=== PATIENT | female | born 1945 | race Caucasian/White ===

== ENCOUNTER → 2018-11-28 | Outpatient (CLI) | payer MEDICARE, OTHER ==
--- NOTE | 2018-11-30 10:16 | MM ---
Reason for exam: screening (asymptomatic). Last mammogram was performed 1 year and 5 months ago. History: Patient is postmenopausal. Family history of breast cancer in mother at age 85. Benign excisional biopsy of the left breast, 1989. Took estrogen for 4 years beginning at age 52. Took progesterone for 4 years beginning at age 52. Physical Findings: A clinical breast exam by your physician is recommended on an annual basis and results should be correlated with mammographic findings. MG 3D Screening Mammo W/Cad Bilateral CC and MLO view(s) were taken. Prior study comparison: June 27, 2017, bilateral MG 3d screening mammo w/cad. May 19, 2016, bilateral MG 3d screening mammo w/cad. The breast tissue is heterogeneously dense. This may lower the sensitivity of mammography. Finding: There are grouped/clustered fine calcifications in the upper outer quadrant, middle position of the left breast. New finding since May 19, 2016 and June 27, 2017. ASSESSMENT: Incomplete: need additional imaging evaluation, BI-RAD 0 RECOMMENDATION: Special view mammogram of the left breast. [facility] will attempt to contact patient to return for supplemental views.
== END | disposition home or self-care (01) ==
LOC: RADMAMWWP 14:21
PROVIDERS: ATTEND Internal Medicine
DX: Z12.31 Encounter for screening mammogram for malignant neoplasm of breast (principal)
CPT/HCPCS: 77063; 77067

== ENCOUNTER → 2018-12-06 | Outpatient (CLI) | payer MEDICARE, OTHER ==
--- NOTE | 2018-12-07 12:15 | MM ---
Reason for exam: additional evaluation requested from abnormal screening. Last mammogram was performed less than 1 month ago. History: Patient is postmenopausal. Family history of breast cancer in mother at age 85. Benign excisional biopsy of the left breast, 1989. Took estrogen for 4 years beginning at age 52. Took progesterone for 4 years beginning at age 52. Physical Findings: Nurse Summary: 0.5 x 1cm nodule in the right breast at 3 o'clock (nurse ts). MG 3D Work Up W/Cad LT CC with magnification, MLO with magnification, and LM view(s) were taken of the left breast. Prior study comparison: November 28, 2018, bilateral MG 3d screening mammo w/cad. June 27, 2017, bilateral MG 3d screening mammo w/cad. The breast tissue is heterogeneously dense. This may lower the sensitivity of mammography. There is a 3mm group of pleomorphic calcifications in the left upper outer quadrant 8.5cm from nipple, biopsy is recommended. These results were verbally communicated with the patient and result sheet given to the patient on 12/06/18. ASSESSMENT: Suspicious, BI-RAD 4 RECOMMENDATION: Stereotactic core biopsy of the left breast. Called with mammographic findings and has scheduled an appointment for the patient for 01/11/19 at 3:[address] Reeder. Biopsy scheduled for 01/15/19 at 8:00. PRELIMINARY REPORT CALLED AND FAXED TO DR. REEDER ON 12/06/18.
== END | disposition home or self-care (01) ==
LOC: RADMAMWWP 14:56
PROVIDERS: ATTEND Internal Medicine
DX: R92.8 Other abnormal and inconclusive findings on diagnostic imaging of breast (principal)
CPT/HCPCS: 77065; G0279; 77061

== ENCOUNTER → 2018-12-14 | Outpatient (CLI) | payer MEDICARE, OTHER ==
[2018-12-14 09:05] VITALS: BP 170/70; PULSE 73; RESP 16; TEMP 98.2; BMI 28.6
--- NOTE | 2018-12-14 09:37 | P.GSHP ---
History of Present Illness H&P Date: 12/14/18 Chief Complaint: abnormal mammogram The patient is a 73 year old whtie female with a complaint of an abnormal mammogram showing some microcalcifications of concern in the left breast. This was done on 11-28-18, and a diagnostic mammogram was on 12-06-18. The patient does not feel anything in her breast. No nipple discharge, or skin changes. The nipples have been inverted for many years. there is no history of any trauma or infection in the breast. Family History: 1. mother: breast at 86 2. father: lymphoma Hormonal History: menarche: 12 , breast fed: yes, first born at 18 menopause: 48 BCP: 1 year hormones: none Past Surgical History: 1. breast biopsy on the left 2. tubal 3. toe surgery Past Medical History: 1. HTN 2. high cholesterol Social History: smoke: none alcohol: twice a week drugs: none - Constitutional Constitutional: Denies chills, Denies fever - EENT Comment: sensitive to light, bilateral blephroplasty Eyes: denies blurred vision, denies pain Ears: bilateral: tinnitus - Breasts Breasts: bilateral: as per HPI - Cardiovascular Cardiovascular: Reports high blood pressure - Respiratory Respiratory: Denies cough, Denies 7 - Gastrointestinal Gastrointestinal: Denies abdominal pain, Denies diarrhea, Denies nausea, Denies vomiting - Genitourinary (Female) Genitourinary: Denies dysuria, Denies hematuria - Menstruation Menstruation: Reports postmenopausal - Musculoskeletal Comment: arthritis - Integumentary Integumentary: Denies pruritus, Denies rash - Neurological Neurological: Denies numbness, Denies weakness - Psychiatric Psychiatric: Denies anxiety, Denies depression - Endocrine Endocrine: Denies fatigue, Denies weight change - Hematologic/Lymphatic Comment: none - Allergic/Immunologic Comment: hayfever, cats, dogs Past Medical History Past Medical History: GERD/Reflux, Hyperlipidemia, Hypertension, Pneumonia Additional Past Medical History / Comment(s): loose stools, History of Any Multi-Drug Resistant Organisms: None Reported Past Surgical History: Orthopedic Surgery, Tonsillectomy, Tubal Ligation Additional Past Surgical History / Comment(s): rt foot surgery, Past Anesthesia/Blood Transfusion Reactions: Previous Problems w/ Anesthesia Additional Past Anesthesia/Blood Transfusion Reaction / Comment(s): diff waking up Past Psychological History: No Psychological Hx Reported Smoking Status: Never smoker Past Alcohol Use History: Occasional Past Drug Use History: None Reported - Past Family History Mother Family Medical History: No Reported History Medications and Allergies Home Medications Medication Instructions Recorded Confirmed Type Aspirin 81 mg PO HS 03/17/15 12/14/18 History Atorvastatin [Lipitor] 10 mg PO HS 03/17/15 12/14/18 History Calcium(Dose Unknown) 1 tab PO HS 03/17/15 12/14/18 History Metoprolol Succinate [Toprol XL] 100 mg PO DAILY 03/17/15 12/14/18 History Multivitamins, Thera [Theragran] 1 each PO DAILY 03/17/15 12/14/18 History Allergies Allergy/AdvReac Type Severity Reaction Status Date / Time codeine Allergy "groggy" Verified 03/17/15 11:51 Surgical - Exam Vital Signs Temp Pulse Resp BP Pulse Ox 98.2 F 73 16 170/70 95 12/14/18 08:52 12/14/18 08:52 12/14/18 08:52 12/14/18 08:52 12/14/18 08:52 BMI 28.7 - General well developed, well nourished, no distress - Eyes normal ocular movement - ENT no hearing loss, no congestion - Neck no masses, trachea midline, no venous distension - Respiratory normal expansion, normal respiratory effort, clear to percussion, clear to auscultation - Cardiovascular Rhythm: regular Heart Sounds: normal: S1, S2 - Abdomen Abdomen: soft, non tender, no guarding, no rigid, no rebound - Integumentary normal turgor - Neurologic no disoriented, no combative - Musculoskeletal normal gait, normal posture - Psychiatric oriented to time, oriented to person, oriented to place, speech is normal, memory intact breast exam: right breast: inverted nipple, multipositional exam no dominate leisa or nodules of concern right axilla: no adeopathy of concern left breast: inverted nipple , fibrocystic changes no dominate leisa or nodules of concern left axilla: no adenopathy of concern Results mammogram results reviewed Assessment and Plan Assessment: Impression: 1. HTN 2. high cholesterol 3. abnormal mammogram 4. fibrocystic breast disease 5. family history of cancer 6. family history of breast cancer Risk and benfits of stero biopsy discussed with the patient. The Patient understands and wishes to proceed. Plan: 1. stero biopsy of hte left breast 2. follow up after biopsy CC: Dr. Anguiano
== END | disposition home or self-care (01) ==
LOC: WWCWWP 08:49
PROVIDERS: ATTEND Surgery
DX: Z53.9 Procedure and treatment not carried out, unspecified reason (principal)

== ENCOUNTER → 2019-01-10 | Day surgery (SDC) | payer MEDICARE, OTHER ==
[2019-01-10 07:28] VITALS: RESP 16; BMI 62.1
--- NOTE | 2019-01-10 09:11 | P.OP ---
Date of Procedure: 01/10/19 Preoperative Diagnosis: Mammographic abnormality left breast Postoperative Diagnosis: same Procedure(s) Performed: Left breast stereotactic core biopsy Anesthesia: local Surgeon: Tyra Reeder Estimated Blood Loss (ml): 1 Pathology: other (Breast tissue) Condition: stable Disposition: same day Indications for Procedure: 3 mm group of pleomorphic calcifications in the left breast upper outer quadrant Operative Findings: Radiographic of specimen reveals microcalcifications of concern Description of Procedure: Munira is a 73-year-old white female who on her mammogram was noted to have an area of pleomorphic calcifications in the upper outer quadrant a 8.5 cm from the nipple, of the left breast. Biopsy was recommended. The risks and benefits of stereo biopsy were discussed with the patient and she chose to proceed. The patient was brought to the stereotactic core biopsy room. She was positioned on the prone biopsy table. A cold saw operator film was performed. The area of concern was identified. Stereo pair was obtained. The lesion of concern was identified and targeted. The breast was prepped using Betadine. 20 mL of lidocaine 1% were used to anesthetize the area of concern. The skin was anesthetized. The needle was driven to the correct coordinates. The needle was a 9-gauge vacuum-assisted rotating core biopsy needle. Prefire films were obtained. The needle appeared to be in the correct location. The needle was fired. 7 core biopsies were obtained rotating from the 3:00 to the 6 o'clock position through 12:00. The area was lavaged. Radiograph of the specimen revealed the area of concern had been sampled. A secure kathleen top-hat clip was left in place. The patient tolerated the procedure in stable condition. Specimen was sent for pathology. The patient will follow-up Dr. Dukes next week. Cc Dr. Anguiano
[2019-01-10 10:18] VITALS: BP 173/87; PULSE 67; TEMP 98
--- NOTE | 2019-01-10 13:11 | MM ---
EXAMINATION TYPE: MG stereo VAD BX LT DATE OF EXAM: 01/10/2019 COMPARISON: 12/06/2018 CLINICAL HISTORY: 3 mm indeterminate calcifications of the left breast , upper-outer quadrant, for wh ich stereotactic guided biopsy was recommended. TECHNIQUE: Stereotactic guided core biopsy of left breast. FINDINGS: The procedure of stereotactic guided core biopsy was explained to the patient. Benefits, a lternatives, and risks were discussed. An informed consent was then obtained. Preprocedural timeout was performed. The shortness pathway for biopsy was chosen. Shortness pathway was lateral to medial approach. I per formed the localization, then surgeon, Dr. Reeder performed the remainder of the procedure. A va cuum assisted biopsy gun was used to obtain multiple core samples. The patient tolerated the procedure well without any immediate complication. The patient was kept in the radiology department for short stay after the procedure and then discharged home in stable condi tion. Targeted calcifications are identified in specimen mammogram. Post biopsy mammogram shows the clip to appear in satisfactory position relative to the targeted area of concern on the preprocedure images. IMPRESSION: SUCCESSFUL, UNCOMPLICATED STEREOTACTIC GUIDED CORE BIOPSY OF AREA OF CONCERN IN THE LEFT BREAST, FULL PATHOLOGY RESULTS TO FOLLOW.
== END ==
LOC: RADMAMWWP 07:03
PROVIDERS: ATTEND Surgery
DX: D05.12 Intraductal carcinoma in situ of left breast (principal); R92.1 Mammographic calcification found on diagnostic imaging of breast; Z88.5 Allergy status to narcotic agent
CPT/HCPCS: 88305; 19081; A4648; J2001; 88341; 88342

== ENCOUNTER → 2019-01-17 | Outpatient (CLI) | payer MEDICARE, OTHER ==
[2019-01-17 13:52] VITALS: BP 183/94; PULSE 79; RESP 18; TEMP 98.2; BMI 28.6
--- NOTE | 2019-01-17 14:30 | P.PN ---
Subjective Progress Note Date: 01/17/19 A 73-year-old white female status post [place] [id number]. 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 The patient has no complaints related to the procedure. Objective - Vital Signs Vital signs: Vital Signs Temp 98.2 F 01/17/19 13:43 Pulse 79 01/17/19 13:43 Resp 18 01/17/19 13:43 BP 183/94 01/17/19 13:43 Pulse Ox 96 01/17/19 13:43 Intake & Output 01/16/19 01/17/19 01/17/19 18:59 06:59 18:59 Weight 75.75 kg - Constitutional General appearance: Present: average body habitus - EENT Eyes: Present: EOMI ENT: Present: hearing grossly normal - Neck Neck: Present: normal ROM - Respiratory Respiratory: bilateral: CTA - Cardiovascular Rhythm: regular Heart sounds: normal: S1, S2 - Gastrointestinal General gastrointestinal: Present: soft - Integumentary Integumentary: Present: normal turgor - Musculoskeletal Musculoskeletal: Present: gait normal - Psychiatric Psychiatric: Present: A&O x's 3, appropriate affect, intact judgment & insight - Additional findings Additional findings: Breast examination: Left breast: Mild ecchymosis at site of stereotactic biopsy, no evidence of any infection Assessment and Plan Assessment: Impression: 1. 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 Fibrocystic breast changes 3. Mother history of breast cancer 4. Family history of cancer 5. Hypertension 6. High cholesterol Plan: 1. Patient to meet with medical oncology 2. Lumpectomy left breast 3. Possible radiation therapy The lesion was 3 mm in size. I discussed this and benefits of surgery which would include lumpectomy plus or minus radiation therapy, possible mastectomy plus or minus reconstruction which did not think is unnecessary at this time. The patient wishes to go with lumpectomy that all possible. The patient has a very busy schedule including a trip planned to [place] in the next month and a half. She would therefore like to wait to have surgery until after she returns from this trip. In the interim I would suggest that she be seen by medical oncology and possibly start an anti-hormonal agent. She understands and Nayla nurse navigator is helping set this up. Cc: Dr. Anguiano
== END | disposition home or self-care (01) ==
LOC: WWCWWP 13:41
PROVIDERS: ATTEND Surgery
DX: Z53.9 Procedure and treatment not carried out, unspecified reason (principal)

== ENCOUNTER → 2019-03-29 | Outpatient (CLI) | payer MEDICARE, OTHER ==
[2019-03-29 14:08] VITALS: BP 178/83; PULSE 78; RESP 18; TEMP 98.3; BMI 31.2
--- NOTE | 2019-03-29 14:37 | P.PN ---
Subjective Progress Note Date: 03/29/19 Principal diagnosis: left breast DCIS Munira is a 73-year-old white female who [place] [address]. 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 The patient had a vacation planned to [place] and just got back. She wished to have the treatment after returning from her vacation. The patient has not noted any lumps masses or nodules in her breast. This was a routine mammogram done for screening patient gets mammograms every year and a noted the area of microcalcifications. The patient has had chronically inverted nipples for approximately 20 years and this has not changed. She does not report any history of trauma or infection in the breast. She is not having any pain in the breast. Family History: 1. mother: breast at 86 2. father: lymphoma Hormonal History: menarche: 12 , breast fed: yes, first born at 18 menopause: 48 BCP: 1 year hormones: none Past Surgical History: 1. breast biopsy on the left 2. tubal 3. toe surgery Past Medical History: 1. HTN 2. high cholesterol Social History: smoke: none alcohol: twice a week drugs: none - Constitutional Constitutional: Denies chills, Denies fever - EENT Comment: sensitive to light, bilateral blephroplasty Eyes: denies blurred vision, denies pain Ears: bilateral: tinnitus - Breasts Breasts: bilateral: as per HPI - Cardiovascular Cardiovascular: Reports high blood pressure - Respiratory Respiratory: Denies cough, Denies 7 - Gastrointestinal Gastrointestinal: Denies abdominal pain, Denies diarrhea, Denies nausea, Denies vomiting - Genitourinary (Female) Genitourinary: Denies dysuria, Denies hematuria - Menstruation Menstruation: Reports postmenopausal - Musculoskeletal Comment: arthritis - Integumentary Integumentary: Denies pruritus, Denies rash - Neurological Neurological: Denies numbness, Denies weakness - Psychiatric Psychiatric: Denies anxiety, Denies depression - Endocrine Endocrine: Denies fatigue, Denies weight change - Hematologic/Lymphatic Comment: none - Allergic/Immunologic Comment: hayfever, cats, dogs Past Medical History Past Medical History: GERD/Reflux, Hyperlipidemia, Hypertension, Pneumonia Additional Past Medical History / Comment(s): loose stools, History of Any Multi-Drug Resistant Organisms: None Reported Past Surgical History: Orthopedic Surgery, Tonsillectomy, Tubal Ligation Additional Past Surgical History / Comment(s): rt foot surgery, Past Anesthesia/Blood Transfusion Reactions: Previous Problems w/ Anesthesia Additional Past Anesthesia/Blood Transfusion Reaction / Comment(s): diff waking up Past Psychological History: No Psychological Hx Reported Smoking Status: Never smoker Past Alcohol Use History: Occasional Past Drug Use History: None Reported Objective - Vital Signs Vital signs: Vital Signs Temp 98.3 F 03/29/19 14:05 Pulse 78 03/29/19 14:05 Resp 18 03/29/19 14:05 BP 178/83 03/29/19 14:05 Pulse Ox 96 03/29/19 14:05 Intake & Output 03/28/19 03/29/19 03/29/19 18:59 06:59 18:59 Weight 82.554 kg - Exam BMI 31.2 - Constitutional General appearance: Present: obese - EENT Eyes: Present: EOMI ENT: Present: hearing grossly normal - Neck Neck: Present: normal ROM - Respiratory Respiratory: bilateral: CTA - Cardiovascular Rhythm: regular Heart sounds: normal: S1, S2 - Gastrointestinal General gastrointestinal: Present: soft - Integumentary Integumentary: Present: normal turgor - Musculoskeletal Musculoskeletal: Present: gait normal - Psychiatric Psychiatric: Present: A&O x's 3, appropriate affect, intact judgment & insight - Additional findings Additional findings: Breast right breast: Chronically inverted nipple, fibrocystic changes, multiple positional exam no dominant masses or nodules of concern Right axilla: No adenopathy of concern Left breast: Chronically inverted nipple, multiple positional exam fibrocystic changes no dominant masses or nodules of concern Left axilla: No adenopathy of concern Assessment and Plan Assessment: Impression: 1. right breast DCIS 2. fibrocystic breast 3. HTN 4. high cholesterol 5. family history of breast cancer 6. abnormal mammogram 7 family history of cancer Treatment options have been discussed with Gissel. These include lumpectomy with radiation therapy to the breast. Alternatively she could opt for a mastectomy plus or minus reconstruction. At this time I'm not recommending a mastectomy and the patient wishes stopped for a lumpectomy. She understands that risks include bleeding infection reaction to the anesthetic. She also understands that if the margins are positive or if she has an invasive component to the disease she may require further surgical intervention. Plan: 1. Needle localization and excisional lumpectomy right breast ductal carcinoma in situ. 2. Medical management medical conditions Cc:
== END ==
LOC: WWCWWP 13:40
PROVIDERS: ATTEND Surgery
DX: Z53.9 Procedure and treatment not carried out, unspecified reason (principal)

== ENCOUNTER 2019-04-02 08:57 | Day surgery (SDC) | payer MEDICARE, OTHER ==
[2019-03-29 10:45] VITALS: BMI 28.8
[~2019-04-02 08:57] MED LIST: DEXAMETHASONE SOD PHOSPHATE 10 MG/ML 1 ML VIAL IV ONE; HEPARIN SODIUM,PORCINE 5,000 UNIT/ML 1 ML VIAL SQ ONE; HYDROmorphone 0.5 MG/0.5 ML SYRINGE IVP PRN; LACTATED RINGERS 1,000 ML IV SCH; LIDOCAINE 1% 20 ML VIAL (10MG/ML) FOR IV START INTRADERMA PRN; MIDAZOLAM 2 MG/2 ML VIAL IV PRN; ONDANSETRON 4 MG/2 ML VIAL IVP ONE; Pre Op ABX Message 1 EACH MISC MISCELLANE ONE; SCOPOLAMINE 1.5MG/72HR PATCH TRANSDERM ONE
[2019-04-02] MEDS ORDERED: ALPRAZolam 0.25 MG TAB PO ONE (09:25)
[2019-04-02] MEDS ORDERED: LIDOCAINE 1% INJ 10MG/ML (20 ML MDV) SQ ONE ×3 (10:15→12:48)
[2019-04-02] MEDS ORDERED: PROPOFOL 10 MG/ML 20 ML VIAL IV ONE (12:12)
[2019-04-02] MEDS ORDERED: LIDOCAINE 1% INJ 10MG/ML (20 ML MDV) ONE (12:12)
[2019-04-02] MEDS ORDERED: MIDAZOLAM 2 MG/2 ML VIAL ONE (12:12)
[2019-04-02] MEDS ORDERED: ROCURONIUM BROMIDE 10 MG/ML 10 ML VIAL IV ONE (12:12)
[2019-04-02] MEDS ORDERED: NEOSTIGMINE 1 MG/ML 10 ML VIAL ONE (12:12)
[2019-04-02] MEDS ORDERED: GLYCOPYRROLATE 0.2 MG/ML 2 ML VIAL ONE (12:12)
[2019-04-02] MEDS ORDERED: KETOROLAC 30 MG/ML 1 ML VIAL ONE (12:12)
[2019-04-02] MEDS ORDERED: PHENYLEPHRINE-0.9% NACL SYG 1 MG/10 ML SYRINGE ONE (12:12)
[2019-04-02] MEDS ORDERED: fentaNYL (PF) 50 MCG/ML 2 ML AMP ONE (12:12)
[2019-04-02] MEDS ORDERED: LACTATED RINGERS 1,000 ML IV ONE (13:27)
--- NOTE | 2019-04-02 13:29 | P.NAPBC ---
NAPBC Queries - NAPBC Queries Was patient's case review presented at [facility] tumor board? If no, comment.: Yes Was patient's pathology reviewed at [facility]? If no, comment.: Yes Was breast conservation surgery offered? If no, comment.: Yes Was sentinel node biopsy offered? If no, comment.: Yes (opted not to do this after discussed with patient) Was diagnosis confirmed by percutaneous core biopsy? If no, comment.: Yes Is patient mastectomy patient?: No Clinical Stage: Stage 0
--- NOTE | 2019-04-02 13:34 | P.OP ---
Date of Procedure: 04/02/19 Preoperative Diagnosis: Ductal carcinoma in situ left breast Postoperative Diagnosis: Same Procedure(s) Performed: needle Localization and lumpectomy left breast Anesthesia: MAURIA Surgeon: Tyra Reeder Estimated Blood Loss (ml): 5 IV fluids (ml): 600 Pathology: other (bresat tissue) Condition: stable Disposition: same day Indications for Procedure: biopsy proven left breast ductal carcinoma in situ. Operative Findings: Dense breast tissue Description of Procedure: The patient is a 73-year-old white female who underwent a core biopsy of the radiographic abnormality in the left breast. Pathology revealed ductal carcinoma in situ. Options were discussed with the patient initially chose to have a lumpectomy. The area of concern in the left breast was localized. The patient was brought to the operating room and following induction of anesthesia the left breast was prepped and draped in a sterile fashion. An inferior breast incision was made and carried down to the shaft of the ne edle. Surrounding tissue was excised. The patient had several vessels feeding into the area of resection which were clamped and suture ligated. After the specimen was removed the lumpectomy tissue was painted for orientation. Radiograph of the specimen revealed the area of concern had been removed. Titanium clips were placed in the lumpectomy cavity. Patient was examined for hemostasis. After we were assured that hemostasis was attained the deep tissues were closed using 3-0 Vicryl suture. The superficial tissues closed with 4-0 Vicryl suture. This was followed by skin closure with 4-0 Monocryl. 10 mL of 1% lidocaine were used to anesthetize the area of the skin. Glue was placed. The patient tolerated the procedure in stable condition.
--- NOTE | 2019-04-02 13:36 | P.DS ---
Providers Attending physician: Tyra Reeder Primary care physician: Gregory Anguiano Plan - Discharge Summary Discharge Rx Participant: Yes New Discharge Prescriptions: No Action Metoprolol Succinate [Toprol XL] 100 mg PO DAILY Atorvastatin [Lipitor] 10 mg PO HS Calcium Carbonate/Vitamin D3 [Caltrate 600 Plus D3 Tablet] 1 each PO DAILY Multivit-Min/FA/Lycopen/Lutein [Centrum Silver Tablet] 1 each PO DAILY Ibuprofen [Advil] 400 mg PO DIRECTED PRN PRN Reason: Headache Discharge Medication List Atorvastatin [Lipitor] 10 mg PO HS 03/17/15 [History] Metoprolol Succinate [Toprol XL] 100 mg PO DAILY 03/17/15 [History] Calcium Carbonate/Vitamin D3 [Caltrate 600 Plus D3 Tablet] 1 each PO DAILY 12/25/18 [History] Multivit-Min/FA/Lycopen/Lutein [Centrum Silver Tablet] 1 each PO DAILY 12/25/18 [History] Ibuprofen [Advil] 400 mg PO DIRECTED PRN 03/29/19 [History] Follow up Appointment(s)/Referral(s): Tyra Reeder MD [STAFF PHYSICIAN] - 1 Week Activity/Diet/Wound Care/Special Instructions: Drive for 24 hours after the breast from hospital May shower after 48 hours Wear bra at all times Discharge Disposition: HOME SELF-CARE
[2019-04-02 13:59] VITALS: TEMP 97.2
[2019-04-02 14:47] VITALS: RESP 16
[2019-04-02 14:57] VITALS: BP 161/79; PULSE 65
--- NOTE | 2019-04-02 18:14 | MM ---
EXAMINATION TYPE: MG pre op needle loc LT DATE OF EXAM: 04/02/2019 COMPARISON: 01/10/2019 CLINICAL HISTORY: Abnormal mammogram TECHNIQUE: Needle localization with wire placement and surgical excision of area of concern in the left breast. FINDINGS: The procedure of needle localization with wire placement and than surgical excision was explained to the patient. Benefits, alternatives, and risks were discussed. An informed consent was then obtained. The shortest pathway for procedure was chosen. Shortest pathway was medial to lateral approach. The overlying skin was prepped and draped in usual sterile fashion. Lidocaine buffered with bicarbonate was used as anesthetic into the skin and subcutaneous tissue up to the level of area of concern. A 7 cm needle was used. It was placed via a medial to lateral approach under mammographic guidance. Subsequent 90 degrees mammogram show the needle to be in satisfactory position relative to the targeted area. At this point, wire was placed and the needle was withdrawn. The wire was fixed to patient's skin. Images were marked for surgeon. Mammographic images were reviewed and case discussed in person. The patient tolerated the procedure well without any immediate complication. The patient was kept in the radiology department for short stay after the procedure and then taken to surgery for surgical excision. Specimen: Surgical clip and previous biopsy position and wire are identified in specimen mammogram. Wire may have fractured, this was discussed with the surgeon who reported additional wire fragments were removed during surgery. IMPRESSION: 1. Successful wire localization and excision. Recommendations: 1. Recommendations are pending pathology. Pathology Results: Malignant LEFT BREAST LESION, LUMPECTOMY: Focal lobular carcinoma in situ (blocks A4 and A9) in a background of radial scar, sclerosisng adenosis, fibrocystic changes and microcalcifications. Recommendation Follow up mammogram of the left breast in 6 months. CHENG
== END 2019-04-02 15:22 | disposition home or self-care (01) ==
LOC: OR 08:57
PROVIDERS: ATTEND Surgery
DX: D05.02 Lobular carcinoma in situ of left breast (principal); N60.12 Diffuse cystic mastopathy of left breast; N60.22 Fibroadenosis of left breast; N64.59 Other signs and symptoms in breast; I10 Essential (primary) hypertension; E78.5 Hyperlipidemia, unspecified; E78.00 Pure hypercholesterolemia, unspecified; K21.9 Gastro-esophageal reflux disease without esophagitis; I83.90 Asymptomatic varicose veins of unspecified lower extremity; Z79.899 Other long term (current) drug therapy; Z88.5 Allergy status to narcotic agent; Z90.89 Acquired absence of other organs; Z98.51 Tubal ligation status; Z98.890 Other specified postprocedural states; Z78.0 Asymptomatic menopausal state; Z91.09 Other allergy status, other than to drugs and biological substances; Z87.01 Personal history of pneumonia (recurrent); Z80.3 Family history of malignant neoplasm of breast; Z80.7 Family history of other malignant neoplasms of lymphoid, hematopoietic and related tissues
CPT/HCPCS: 19301; 19281; 88342; 88307; 88341; 76098; J2250; J1644; J1100; J2710; J2405; J2001; J3010; J1885; J2370; J2704

== ENCOUNTER → 2019-04-11 | Outpatient (CLI) | payer MEDICARE, OTHER ==
[2019-04-11 16:08] VITALS: BP 158/84; PULSE 67; RESP 16; TEMP 98.2; BMI 29.5
--- NOTE | 2019-04-11 16:14 | P.PN ---
Progress Note - Text Progress Note Date: 04/11/19 Munira is a 73-year-old white female she is status post needle local excisional lumpectomy of the area in the left breast of DCIS. The procedure was done on . Pathology revealed focal lobular carcinoma in situ and no residual DCIS. She had some ecchymosis following the procedure but this is resolving and she has no complaints at this time. Lungs: Clear Heart: Regular rate and rhythm Incision: Clean and dry some resolving ecchymosis otherwise no evidence of infection Impression: 1. Patient status post lumpectomy area of DCIS no residual DCIS noted 2. Patient doing well at this time Plan: 1. Appointment with medical oncology 2. Pulmonary radiation oncology 3. Follow-up 4 months time CC:
== END | disposition home or self-care (01) ==
LOC: WWCWWP 15:44
PROVIDERS: ATTEND Surgery
DX: Z53.9 Procedure and treatment not carried out, unspecified reason (principal)

== ENCOUNTER → 2019-05-23 | Outpatient (CLI) | payer MEDICARE, OTHER ==
--- NOTE | 2019-05-24 07:31 | BD ---
EXAMINATION TYPE: Axial Bone Density DATE OF EXAM: 05/23/2019 COMPARISON: 12.26.2002 CLINICAL HISTORY: 73 YR OLD FEMALE....ICD-10 CODE: D05.12 CA IN SITU LT BREAST Height: 63 Weight: 183 FRAX RISK QUESTIONS: History of Fracture in Adulthood: YES RISK FACTORS HISTORY OF: HX OR RT FOOT FX, AND LT FOOT, AND 2 YRS LATER RT HAND FX, ALL OVER THE AGE OF 48 Family History of Osteoporosis: YES, HER MOTHER WITHOUT FX Active: YES Postmenopausal woman: YES, AT ABOUT 53 YRS OLD Lost more than 2 inches in height since high school: YES Hyperparathyroidism: NO Adrenal Insufficiency: NO MEDICATIONS: Osteoporosis Medications: STOPPED 5 YRS AGO, FOSAMAX Additional Medications: BP MEDS, ARIMIDEX,TUMS,STATIN FOR CHOLESTEROL, CALCIUM WITH D Additional History: HX LT BREAST CA, CHOLESTEROL, HYPERTENSION EXAM MEASUREMENTS: Bone mineral densitometry was performed using the [employer] System. Bone mineral density as measured about the Lumbar spine is: ----- L1-L4(G/cm2): 1.119 T Score Values are as follows: ----- L1: -1.6 ----- L2: -1.5 ----- L3: -0.3 ----- L4: 0.8 ----- L1-L4: -0.5 Bone mineral density has: Increased 12.6% since study of: 12.26.2002 Bone mineral density about the R hip (g/cm2): 0.996 Bone mineral density about the L hip (g/cm2): 1.011 T Score values are as follows: -----R Neck: -1.2 -----L Neck: -1.0 -----R Total: -0.1 -----L Total: 0.0 Bone mineral density has: Decreased -0.9% since study of: 12.26.2002 FRAX%s: THERE IS A 15.3% CHANCE FOR A MAJOR OSTEOPOROTIC FX AND A 2.4% FOR HIP.....PROBABILITY FOR FX IN 10 YRS TIME IMPRESSION: No evidence for osteoporosis or osteopenia. NOTE: T-SCORE=SD OF THE YOUNG ADULT MEAN.
== END | disposition home or self-care (01) ==
LOC: RADBDWWP 16:18
PROVIDERS: ATTEND Internal Medicine Hematology & Oncology
DX: D05.12 Intraductal carcinoma in situ of left breast (principal); N95.1 Menopausal and female climacteric states; Z79.890 Hormone replacement therapy
CPT/HCPCS: 77080

== ENCOUNTER → 2019-08-09 | Outpatient (CLI) | payer MEDICARE, OTHER ==
[2019-08-10 01:24] LABS: Gliadin AB IgA, Deaminated NEGATIVE (NEGATIVE); Gliadin AB IgA, Unit <0.2 U/mL
[2019-08-10 01:35] LABS: Gliadin AB IgG, Deaminated NEGATIVE (NEGATIVE)
== END | disposition home or self-care (01) ==
LOC: LABWHC1 15:07
PROVIDERS: ATTEND Internal Medicine
DX: R19.7 Diarrhea, unspecified (principal)
CPT/HCPCS: 36415; 83516; 85652; 86140; 87324

== ENCOUNTER 2019-08-15 08:26 | Day surgery (SDC) | payer MEDICARE, OTHER ==
[~2019-08-15 08:26] MED LIST changes: -DEXAMETHASONE SOD PHOSPHATE 10 MG/ML 1 ML VIAL IV ONE; -HEPARIN SODIUM,PORCINE 5,000 UNIT/ML 1 ML VIAL SQ ONE; -HYDROmorphone 0.5 MG/0.5 ML SYRINGE IVP PRN; +LIDOCAINE 1% (10MG/ML) FOR IV START INTRADERMA PRN; -LIDOCAINE 1% 20 ML VIAL (10MG/ML) FOR IV START INTRADERMA PRN; -ONDANSETRON 4 MG/2 ML VIAL IVP ONE; -Pre Op ABX Message 1 EACH MISC MISCELLANE ONE; -SCOPOLAMINE 1.5MG/72HR PATCH TRANSDERM ONE
[2019-08-15 09:12] VITALS: TEMP 98.2
[2019-08-15] MEDS ORDERED: PROPOFOL 10 MG/ML 20 ML VIAL IV ONE (09:31)
[2019-08-15 10:08] VITALS: PULSE 78; RESP 18
--- NOTE | 2019-08-15 10:09 | P.PCN ---
Date of Procedure: 08/15/19 Description of Procedure: BRIEF HISTORY: 74-year-old female presenting for outpatient colonoscopy for evaluation of diarrhea. She had been seen in the office reporting one month of loose bowel movements approximately 3-6 daily. She denied any black tarry stool or blood in the stool. She had reported prior colonoscopy in 2015 which was normal. Stool studies including lactoferrin, but she didn't see L and cultures have been negative. Patient was given a trial of dicyclomine with further stool studies ordered and will follow up in the office. PROCEDURE PERFORMED: Colonoscopy with biopsy. PREOPERATIVE DIAGNOSIS: Diarrhea, last colonoscopy 5 years ago per her recollection. ESTIMATED BLOOD LOSS: Minimal. IV sedation per Anesthesia. PROCEDURE: After informed consent was obtained, the patient, was brought into the endoscopy unit. IV sedation was administered by Anesthesia under continuous monitoring. Digital rectal examination was normal. Initially the Olympus CF-190 flexible video colonoscope was then inserted in the rectum, gradually advanced into the cecum without any difficulty. Careful examination was performed as the scope was gradually being withdrawn. Ileocecal valve and the appendiceal orifice were visualized and appeared normal. The terminal ileum was intubated and appeared normal with biopsies taken. Prep was excellent. Mucosa of the cecum, ascending colon, transverse colon, descending colon, sigmoid colon, and rectum appeared normal, with biopsies of the right left colon taken in the setting of altered bowel function. Retroflexion was performed in the rectum and no lesions were seen. The patient tolerated the procedure well. IMPRESSION: Normal-appearing colon from rectum to cecum, and normal-appearing terminal ileum with random biopsies of the right colon, left colon and terminal ileum given diarrhea. RECOMMENDATIONS: Findings of this examination were discussed with the patient and her . Okay to resume diet. Okay to resume medications. Await pathology from biopsies. Follow up in gastroenterology clinic as previously scheduled.
[2019-08-15 10:27] VITALS: BP 112/78
== END 2019-08-15 11:18 | disposition home or self-care (01) ==
LOC: ORWHC2ENDO 08:26
PROVIDERS: ATTEND Internal Medicine
DX: K52.839 Microscopic colitis, unspecified (principal); R19.7 Diarrhea, unspecified; E78.5 Hyperlipidemia, unspecified; Z85.3 Personal history of malignant neoplasm of breast; K21.9 Gastro-esophageal reflux disease without esophagitis; Z79.1 Long term (current) use of non-steroidal anti-inflammatories (NSAID); Z79.899 Other long term (current) drug therapy; Z88.5 Allergy status to narcotic agent
CPT/HCPCS: 45380; 88305; 88313

== ENCOUNTER → 2020-02-20 | Outpatient (CLI) | payer MEDICARE, OTHER ==
--- NOTE | 2020-02-20 12:58 | MM ---
Reason for exam: additional evaluation requested from prior study. Last mammogram was performed 1 year and 2 months ago. History: Patient is postmenopausal and has history of breast cancer at age 73. Family history of breast cancer in mother at age 85. Malignant MG pre op needle loc LT of the left breast, April 02, 2019. Lumpectomy of the left breast, April 02, 2019. Malignant MG stereo VAD BX LT of the left breast, January 10, 2019. Benign excisional biopsy of the left breast, 1989. Took estrogen for 4 years beginning at age 52. Took progesterone for 4 years beginning at age 52. Taking antineoplastic beginning at age 74. Physical Findings: Nurse did not find any significant physical abnormalities on exam. MG 3D Diag Mammo W/Cad JOHNATHAN Bilateral CC and MLO view(s) were taken. Prior study comparison: December 06, 2018, left breast MG 3d work up w/cad LT. November 28, 2018, bilateral MG 3d screening mammo w/cad. The breast tissue is heterogeneously dense. This may lower the sensitivity of mammography. Benign calcifications. No significant new findings when compared with previous films. These results were verbally communicated with the patient and result sheet given to the patient on 02/20/20. ASSESSMENT: Benign, BI-RAD 2 RECOMMENDATION: Follow-up diagnostic mammogram of both breasts in 1 year.
== END | disposition home or self-care (01) ==
LOC: RADMAMWWP 11:01
PROVIDERS: ATTEND Surgery
DX: Z08 Encounter for follow-up examination after completed treatment for malignant neoplasm (principal); Z85.3 Personal history of malignant neoplasm of breast
CPT/HCPCS: 77066; G0279; 77062

== ENCOUNTER → 2020-04-03 | Outpatient (CLI) | payer MEDICARE, OTHER ==
[2020-04-03 11:39] VITALS: BP 145/83; PULSE 69; RESP 16; TEMP 98.3
--- NOTE | 2020-04-03 11:52 | P.PN ---
Subjective Progress Note Date: 04/03/20 Principal diagnosis: left breast DCIS The patient is a 73 year old white female who presented on 12-14-18 with a complaint of an abnormal mammogram showing some microcalcifications of concern in the left breast. This was done on 11-28-18, and a diagnostic mammogram was on 12-06-18. The patient did not feel anything in her breast. No nipple discharge, or skin changes. The nipples had been inverted for many years. There was no history of any trauma or infection in the breast. She underwent a stero biopsy of the left breast on 01-10-19 which showed low grade DCIS. She than underwent a lumpectomy on 04-02-19 which showed focal lobular carcinoma insitu but no residual DCIS. This was ER/Pr+. She did not have radiation therapy. She is taking an estrogen blocking agent, exemestane (Aromasin) as per medical oncology. She had a bilateral mammogram and a2020 this was benign BIRADS 2. She is not complaining of any lumps masses or nodules in her breast. She has no abnormal nipple discharge or skin changes for which she is concerned. She has no complaints related to the Aromasin. Family History: 1. mother: breast at 86 2. father: lymphoma Hormonal History: menarche: 12 , breast fed: yes, first born at 18 menopause: 48 BCP: 1 year hormones: none Past Surgical History: 1. breast biopsy on the left 2. tubal 3. toe surgery Past Medical History: 1. HTN 2. high cholesterol Social History: smoke: none alcohol: twice a week drugs: none - Constitutional Constitutional: Denies chills, Denies fever - EENT Comment: sensitive to light, bilateral blephroplasty Eyes: denies blurred vision, denies pain Ears: bilateral: tinnitus - Breasts Breasts: bilateral: as per HPI - Cardiovascular Cardiovascular: Reports high blood pressure - Respiratory Respiratory: Denies cough, Denies 7 - Gastrointestinal Gastrointestinal: Denies abdominal pain, Denies diarrhea, Denies nausea, Denies vomiting - Genitourinary (Female) Genitourinary: Denies dysuria, Denies hematuria - Menstruation Menstruation: Reports postmenopausal - Musculoskeletal Comment: arthritis - Integumentary Integumentary: Denies pruritus, Denies rash - Neurological Neurological: Denies numbness, Denies weakness - Psychiatric Psychiatric: Denies anxiety, Denies depression - Endocrine Endocrine: Denies fatigue, Denies weight change - Hematologic/Lymphatic Comment: none - Allergic/Immunologic Comment: Objective - Vital Signs Vital signs: Intake & Output 04/02/20 04/03/20 04/03/20 18:59 06:59 18:59 Weight 80.286 kg - Exam BMI 30.4 - Constitutional General appearance: Present: average body habitus - EENT Eyes: Present: EOMI ENT: Present: hearing grossly normal - Neck Neck: Present: normal ROM - Respiratory Respiratory: bilateral: CTA - Cardiovascular Rhythm: regular Heart sounds: normal: S1, S2 - Integumentary Integumentary: Present: normal turgor - Musculoskeletal Musculoskeletal: Present: gait normal - Psychiatric Psychiatric: Present: A&O x's 3, appropriate affect, intact judgment & insight - Additional findings Additional findings: breast exam: 38D insepction: grade 3 ptosis bilateral palpation: Breasts: Multiple positional exam no dominant masses or nodules of concern, fibrocystic changes Right axilla: No adenopathy of concern Left breast: Multi-positional exam, no dominant masses or nodules of concern, well-healed scar from prior lumpectomy Left axilla: No adenopathy of concern Assessment and Plan Assessment: Impression: 1. HTN 2. high cholesterol 3. Patient status post left breast lumpectomy no evidence of cancer at this was done for DCIS 4. Patient on Aromasin Plan: 1. Continue close surveillance repeat examination in 6 months 2. Continue Aromasin continue follow-up with medical oncology 3. Medical management of medical conditions CC: DR. Anguiano encounter 15 minutes, > 50% of time in planning and counselling
== END | disposition home or self-care (01) ==
LOC: WWCWWP 11:15
PROVIDERS: ATTEND Surgery
DX: Z53.9 Procedure and treatment not carried out, unspecified reason (principal)

== ENCOUNTER → 2020-11-13 | Outpatient (CLI) | payer MEDICARE, OTHER ==
[2020-11-13 09:02] VITALS: BP 163/84; PULSE 83; RESP 18; TEMP 98.3
--- NOTE | 2020-11-13 09:32 | P.PN ---
Subjective Progress Note Date: 11/13/20 Principal diagnosis: left breast DCIS left breast DCIS The patient is a 73 year old white female who presented on 12-14-18 with a complaint of an abnormal mammogram showing some microcalcifications of concern in the left breast. This was done on 11-28-18, and a diagnostic mammogram was on 12-06-18. The patient did not feel anything in her breast. No nipple discharge, or skin changes. The nipples had been inverted for many years. There was no history of any trauma or infection in the breast. She underwent a stero biopsy of the left breast on 01-10-19 which showed low grade DCIS. She than underwent a lumpectomy on 04-02-19 which showed focal lobular carcinoma insitu but no residual DCIS. This was ER/Pr+. She did not have radiation therapy. She is taking an estrogen blocking agent, exemestane (Aromasin) as per medical oncology. She had a bilateral mammogram [id number] this was benign BIRADS 2. She is not complaining of any lumps masses or nodules in the past. She is not complaining of any abnormal nipple discharge or skin changes. She is continuing to take the Aromasin. External note from Dr. Chaparro 05-13-20 reviewed. Family History: 1. mother: breast at 86 2. father: lymphoma Hormonal History: menarche: 12 , breast fed: yes, first born at 18 menopause: 48 BCP: 1 year hormones: none Past Surgical History: 1. breast biopsy on the left 2. tubal 3. toe surgery Past Medical History: 1. HTN 2. high cholesterol Social History: smoke: none alcohol: twice a week drugs: none - Constitutional Constitutional: Denies chills, Denies fever - EENT Comment: sensitive to light, bilateral blephroplasty Eyes: denies blurred vision, denies pain Ears: bilateral: tinnitus - Breasts Breasts: bilateral: as per HPI - Cardiovascular Cardiovascular: Reports high blood pressure - Respiratory Respiratory: Denies cough - Gastrointestinal Gastrointestinal: Denies abdominal pain, Denies diarrhea, Denies nausea, Denies vomiting - Genitourinary (Female) Genitourinary: Denies dysuria, Denies hematuria - Menstruation Menstruation: Reports postmenopausal - Musculoskeletal Comment: arthritis - Integumentary Integumentary: Denies pruritus, Denies rash - Neurological Neurological: Denies numbness, Denies weakness - Psychiatric Psychiatric: Denies anxiety, Denies depression - Endocrine Endocrine: Denies fatigue, Denies weight change - Hematologic/Lymphatic Comment: none - Allergic/Immunologic Comment: Objective - Vital Signs Vital signs: Vital Signs Temp 98.3 F 11/13/20 08:59 Pulse 83 11/13/20 08:59 Resp 18 11/13/20 08:59 BP 163/84 11/13/20 08:59 Pulse Ox 96 11/13/20 08:59 Intake & Output 11/12/20 11/13/20 11/13/20 18:59 06:59 18:59 Weight 81.193 kg - Exam BMI 31.2 - Constitutional General appearance: Present: average body habitus - EENT Eyes: Present: EOMI ENT: Present: hearing grossly normal - Neck Neck: Present: normal ROM - Respiratory Respiratory: bilateral: CTA - Cardiovascular Rhythm: regular Heart sounds: normal: S1, S2 - Integumentary Integumentary: Present: normal turgor - Musculoskeletal Musculoskeletal: Present: gait normal - Psychiatric Psychiatric: Present: A&O x's 3, appropriate affect, intact judgment & insight - Additional findings Additional findings: Breast Exam: BRA: 38D inspection: Bilateral grade 3 ptosis Palpation: Right breast: Nipple inverted chronic, fibrocystic changes a multiple positional exam, no dominant masses or nodules of concern Axilla: No adenopathy of concern Left breast: Well-healed scars from prior surgery no dominant masses or nodules of concern, fibrocystic changes, mild nipple inversion less than on the right Left axilla: No adenopathy of concern Fungal infection under both breast Assessment and Plan Assessment: Impression: 1. No evidence of any recurrent tumor left breast, fibrocystic breast changes bilateral 2. Fungal infection of both breasts 3. Hypertension 4. High cholesterol 5. Patient continues on Aromasin Plan: 1. Continue Aromasin 2. Repeat bilateral mammogram in January 2021 with examination at that time 3. Nystatin for fungal infection CC: Dr. Anguiano
== END ==
LOC: WWCWWP 08:43
PROVIDERS: ATTEND Surgery
DX: N60.11 Diffuse cystic mastopathy of right breast (principal); N60.12 Diffuse cystic mastopathy of left breast; B36.8 Other specified superficial mycoses; I10 Essential (primary) hypertension; E78.00 Pure hypercholesterolemia, unspecified; Z79.811 Long term (current) use of aromatase inhibitors; Z88.5 Allergy status to narcotic agent

== ENCOUNTER → 2021-02-23 | Outpatient (CLI) | payer MEDICARE, OTHER ==
--- NOTE | 2021-02-23 13:42 | MM ---
Reason for exam: additional evaluation requested from prior study. Last mammogram was performed 1 year ago. History: Patient is postmenopausal and has history of breast cancer at age 73. Family history of breast cancer in mother at age 85. Malignant MG pre op needle loc LT of the left breast, April 02, 2019. Lumpectomy of the left breast, April 02, 2019. Malignant MG stereo VAD BX LT of the left breast, January 10, 2019. Benign excisional biopsy of the left breast, 1989. Took estrogen for 4 years beginning at age 52. Took progesterone for 4 years beginning at age 52. Taking antineoplastic beginning at age 74. Physical Findings: Nurse did not find any significant physical abnormalities on exam. MG 3D Diag Mammo W/Cad JOHNATHAN Bilateral CC and MLO view(s) were taken. Prior study comparison: February 20, 2020, bilateral MG 3d diag mammo w/cad JOHNATHAN. December 06, 2018, left breast MG 3d work up w/cad LT. The breast tissue is heterogeneously dense. This may lower the sensitivity of mammography. Benign appearing bilateral calcifications. Stable post operative change right breast. These results were verbally communicated with the patient and result sheet given to the patient on 02/23/21. ASSESSMENT: Benign, BI-RAD 2 RECOMMENDATION: Follow-up diagnostic mammogram of both breasts in 1 year.
== END | disposition home or self-care (01) ==
LOC: RADMAMWWP 12:56
PROVIDERS: ATTEND Surgery
DX: R92.2 Inconclusive mammogram (principal); R92.1 Mammographic calcification found on diagnostic imaging of breast; Z78.0 Asymptomatic menopausal state; Z80.3 Family history of malignant neoplasm of breast; Z85.3 Personal history of malignant neoplasm of breast
CPT/HCPCS: 77066; G0279; 77062

== ENCOUNTER → 2021-03-04 | Outpatient (CLI) | payer MEDICARE, OTHER ==
[2021-03-04 08:59] VITALS: BP 128/69; PULSE 81; RESP 16; TEMP 97.9
--- NOTE | 2021-03-04 09:09 | P.PN ---
Subjective Progress Note Date: 03/04/21 Principal diagnosis: left breast DCIS left breast DCIS The patient is a 75 year old white female who presented on 12-14-18 with a complaint of an abnormal mammogram showing some microcalcifications of concern in the left breast. This was done on 11-28-18, and a diagnostic mammogram was on 12-06-18. The patient did not feel anything in her breast. No nipple discharge, or skin changes. The nipples had been inverted for many years. There was no history of any trauma or infection in the breast. She underwent a stero biopsy of the left breast on 01-10-19 which showed low grade DCIS. She than underwent a lumpectomy on 04-02-19 which showed focal lobular carcinoma insitu but no residual DCIS. This was ER/Pr+. She did not have radiation therapy. She is taking an estrogen blocking agent, exemestane (Aromasin) as per medical oncology. She had a bilateral mammogram 02-23-21 this was benign BIRADS 2. She is not complaining of any lumps masses or nodules in the past. She is not complaining of any abnormal nipple discharge or skin changes. She is continuing to take the Aromasin. Family History: 1. mother: breast at 86 2. father: lymphoma Hormonal History: menarche: 12 , breast fed: yes, first born at 18 menopause: 48 BCP: 1 year hormones: none Past Surgical History: 1. breast biopsy on the left 2. tubal 3. toe surgery Past Medical History: 1. HTN 2. high cholesterol Social History: smoke: none alcohol: twice a week drugs: none - Constitutional Constitutional: Denies chills, Denies fever - EENT Comment: sensitive to light, bilateral blephroplasty Eyes: denies blurred vision, denies pain Ears: bilateral: tinnitus - Breasts Breasts: bilateral: as per HPI - Cardiovascular Cardiovascular: Reports high blood pressure - Respiratory Respiratory: Denies cough - Gastrointestinal Gastrointestinal: Denies abdominal pain, Denies diarrhea, Denies nausea, Denies vomiting - Genitourinary (Female) Genitourinary: Denies dysuria, Denies hematuria - Menstruation Menstruation: Reports postmenopausal - Musculoskeletal Comment: arthritis - Integumentary Integumentary: Denies pruritus, Denies rash - Neurological Neurological: Denies numbness, Denies weakness - Psychiatric Psychiatric: Denies anxiety, Denies depression - Endocrine Endocrine: Denies fatigue, Denies weight change - Hematologic/Lymphatic Comment: none - Allergic/Immunologic Comment: Objective - Vital Signs Vital signs: Vital Signs Temp 97.9 F 03/04/21 08:56 Pulse 81 03/04/21 08:56 Resp 16 03/04/21 08:56 BP 128/69 03/04/21 08:56 Pulse Ox 93 L 03/04/21 08:56 Intake & Output 03/03/21 03/04/21 03/04/21 18:59 06:59 18:59 Weight 83.007 kg - Constitutional General appearance: Present: average body habitus - EENT Eyes: Present: EOMI ENT: Present: hearing grossly normal - Neck Neck: Present: normal ROM - Respiratory Respiratory: bilateral: CTA - Cardiovascular Rhythm: regular Heart sounds: normal: S1, S2 - Integumentary Integumentary: Present: normal turgor - Musculoskeletal Musculoskeletal: Present: gait normal - Psychiatric Psychiatric: Present: A&O x's 3, appropriate affect, intact judgment & insight - Additional findings Additional findings: Breast Exam: BRA: 38 D inspection: Well-healed scar left breast from prior surgeries, bilateral nipple inversion chronic, grade 3 ptosis bilateral Palpation: Right breast: Multi-positional exam fibrocystic changes no dominant masses or nodules of concern Right axilla: No adenopathy of concern Left breast: Multiple positional exam fibrocystic changes no dominant masses or nodules of concern, well-healed scars from prior surgery Left axilla: No adenopathy of concern Assessment and Plan Assessment: Impression: 1. DCIS left breast no evidence of recurrence 2. Patient presently on Aromisin as per Dr. Chaparro Plan: 1. Repeat bilateral mammogram in 1 year 2. Continue follow-up with medical oncology/Vin[facility] 3. Follow-up here in 6 months CC: Dr. Anguiano
== END ==
LOC: WWCWWP 08:45
PROVIDERS: ATTEND Surgery
DX: Z08 Encounter for follow-up examination after completed treatment for malignant neoplasm (principal); I10 Essential (primary) hypertension; E78.00 Pure hypercholesterolemia, unspecified; Z88.5 Allergy status to narcotic agent; Z79.811 Long term (current) use of aromatase inhibitors

== ENCOUNTER → 2021-06-02 | Outpatient (CLI) | payer MEDICARE, OTHER ==
--- NOTE | 2021-06-03 10:10 | BD ---
EXAMINATION TYPE: Axial Bone Density DATE OF EXAM: 06/02/2021 COMPARISON: NONE CLINICAL HISTORY: Height: 5 FT 2 1/2 IN Weight: 183 FRAX RISK QUESTIONS: Alcohol (3 or more units per day): NO Family History (Parent hip fracture): NO Glucocorticoids (More than 3mos): NO (Ex: prednisone, prednisolone, methylprednisolone, dexamethasone, and hydrocortisone). History of Fracture in Adulthood: YES Secondary Osteoporosis: 1. Type 1 Diabetes: NO 2. Hyperthyroidism: NO 3. Menopause before 45: NO 4. Malnutrition: NO 5. Chronic liver disease: NO Rheumatoid Arthritis: NO Current Tobacco Use: NO RISK FACTORS HISTORY OF: Surgery to Spine/Hip(right/left)/Wrist (right/left): NO Family History of Osteoporosis: YES Active: YES Diet low in dairy products/other sources of calcium: NO Postmenopausal woman: YES Take estrogen and/or progesterone medications: NO Lost more than 2 inches in height since high school: YES Frequent falls: NO Poor Health: GOOD Hyperparathyroidism: NO Adrenal Insufficiency: NO MEDICATIONS: Additional Medications: ARIMADEX, TOPROL, CHOLESTEROL MEDS, Additional History: BREAST CANCER NO RADIIATION OR CHEMO EXAM MEASUREMENTS: Bone mineral densitometry was performed using the [employer] System. Bone mineral density as measured about the Lumbar spine is: ----- L1-L4(G/cm2): 1.189 T Score Values are as follows: ----- L2: -0.4 ----- L3: 0.6 ----- L4: 1.1 ----- L1-L4: 0.1 Bone mineral density has: INCREASED 7.5 % since study of: 2018 Bone mineral density about the R hip (g/cm2): 0.858 Bone mineral density about the L hip (g/cm2): 0.860 T Score values are as follows: -----R Neck: -1.3 -----L Neck: -1.3 -----R Total: -0.3 -----L Total: -0.5 Bone mineral density has: DECREASED -4.7 % since study of: 2019 IMPRESSION: No evidence for osteoporosis or osteopenia NOTE: T-SCORE=SD OF THE YOUNG ADULT MEAN.
== END | disposition home or self-care (01) ==
LOC: RADBDWWP 14:55
PROVIDERS: ATTEND Internal Medicine Hematology & Oncology
DX: M85.89 Other specified disorders of bone density and structure, multiple sites (principal); Z78.0 Asymptomatic menopausal state
CPT/HCPCS: 77080

== ENCOUNTER → 2021-10-28 | Outpatient (CLI) | payer MEDICARE, OTHER ==
[2021-10-28 13:51] VITALS: BP 155/84; PULSE 83; RESP 18; TEMP 97.6
--- NOTE | 2021-10-28 14:32 | P.PN ---
Subjective Progress Note Date: 10/28/21 Principal diagnosis: left breast DCIS left breast DCIS The patient is a 76 year old white female who presented on 12-14-18 with a complaint of an abnormal mammogram showing some microcalcifications of concern in the left breast. This was done on 11-28-18, and a diagnostic mammogram was on 12-06-18. The patient did not feel anything in her breast. No nipple discharge, or skin changes. The nipples had been inverted for many years. There was no history of any trauma or infection in the breast. She underwent a stero biopsy of the left breast on 01-10-19 which showed low grade DCIS. She than underwent a lumpectomy on 04-02-19 which showed focal lobular carcinoma insitu but no residual DCIS. This was ER/Pr+. She did not have radiation therapy. She is taking an estrogen blocking agent, exemestane (Aromasin) as per medical oncology. She had a bilateral mammogram 02-23-21 this was benign BIRADS 2. She is not complaining of any lumps masses or nodules in the past. She is not complaining of any abnormal nipple discharge or skin changes. She is continuing to take the Aromasin. Family History: 1. mother: breast at 86 2. father: lymphoma Hormonal History: menarche: 12 , breast fed: yes, first born at 18 menopause: 48 BCP: 1 year hormones: none Past Surgical History: 1. breast biopsy on the left 2. tubal 3. toe surgery Past Medical History: 1. HTN 2. high cholesterol Social History: smoke: none alcohol: twice a week drugs: none - Constitutional Constitutional: Denies chills, Denies fever - EENT Comment: sensitive to light, bilateral blephroplasty Eyes: denies blurred vision, denies pain Ears: bilateral: tinnitus - Breasts Breasts: bilateral: as per HPI - Cardiovascular Cardiovascular: Reports high blood pressure - Respiratory Respiratory: Denies cough - Gastrointestinal Gastrointestinal: Denies abdominal pain, Denies diarrhea, Denies nausea, Denies vomiting - Genitourinary (Female) Genitourinary: Denies dysuria, Denies hematuria - Menstruation Menstruation: Reports postmenopausal - Musculoskeletal Comment: arthritis - Integumentary Integumentary: Denies pruritus, Denies rash - Neurological Neurological: Denies numbness, Denies weakness - Psychiatric Psychiatric: Denies anxiety, Denies depression - Endocrine Endocrine: Denies fatigue, Denies weight change - Hematologic/Lymphatic Comment: none - Allergic/Immunologic: codiene Objective - Vital Signs Vital signs: Vital Signs Temp 97.6 F 10/28/21 13:49 Pulse 83 10/28/21 13:49 Resp 18 10/28/21 13:49 BP 155/84 10/28/21 13:49 Pulse Ox 96 10/28/21 13:49 Intake & Output 10/27/21 10/28/21 10/28/21 18:59 06:59 18:59 Weight 80.739 kg - Exam BMI 30.6 - Constitutional General appearance: Present: cooperative - EENT Eyes: Present: EOMI ENT: Present: hearing grossly normal - Neck Neck: Present: normal ROM - Respiratory Respiratory: bilateral: CTA - Cardiovascular Heart sounds: normal: S1, S2 - Integumentary Integumentary: Present: normal turgor - Musculoskeletal Musculoskeletal: Present: gait normal - Psychiatric Psychiatric: Present: A&O x's 3, appropriate affect, intact judgment & insight - Additional findings Additional findings: Breast Exam: BRA: 40D inspection: bilateral grade 3 ptosis; fungal infection under both breast palpation: right breast: Multi-positional exam fibrocystic changes no dominant masses or nodules of concern Right axilla: No adenopathy of concern Left breast: Multi-positional exam fibrocystic changes no dominant masses or nodules of concern Left axilla: No adenopathy of concern Assessment and Plan Assessment: Impression: Hypertension High cholesterol Left breast DCIS no evidence of recurrence Plan: Continue Aromisin Bilateral mammogram in March with physician exam at that time Continue to follow with medical oncology Call [place] or any questions or concerns CC: Dr. Anguiano
== END ==
LOC: WWCWWP 13:40
PROVIDERS: ATTEND Surgery
DX: Z08 Encounter for follow-up examination after completed treatment for malignant neoplasm (principal); Z85.3 Personal history of malignant neoplasm of breast; E78.00 Pure hypercholesterolemia, unspecified; I10 Essential (primary) hypertension; Z88.5 Allergy status to narcotic agent

== ENCOUNTER → 2021-11-08 | Outpatient (CLI) | payer MEDICARE, OTHER ==
--- NOTE | 2021-11-08 12:13 | CA ---
Stress Echo Report Munira Cole Age: 76 Gender: F : 1945 Exam Date: 11/08/2021 10:11 Exam Location: [facility] Ht (in): 65 Wt (lb): 178 Ordering Physician: Gregory Anguiano MD Referring Physician: Silvio PHAM Creative Art Director: Marissa Hu RDCS Technologist Procedure CPT: Indication: R06.09 DYSPNEA, EDEMA ICD-9 Codes: Rhythm: Patient History: HTN, Hyperlipidemia Cardiac Medications: Medications in past 24 hours: Contrast: Stress Results Protocol: Gallo Total dose(mL): Exercise Duration (min:sec): [address] Depression (mm): Angina Score: Pérez Score: METS: 4.6 Resting HR: 75 Resting BP: 157 / 92 Peak HR: 130 Peak BP: 235 / 90 Max Predicted HR: 142 92 % Max Predicted HR Target HR: 121 Double Product: [id number] Stress Summary: BP Response: Reason for Termination: Cardiac Symptoms: ECG Analysis Resting ECG: Normal sinus rhythm normal axis normal intervals Stress ECG: No significant ST segment depression at peak exercise Arrhythmia: Echo Analysis Resting Echo: Normal left ventricular size wall motion systolic function Peak Echo Analysis: Normal hyperdynamic response of all segments of myocardium MEASUREMENTS (Male/Female) Normal Values CONCLUSIONS Very poor exercise tolerance Negative stress test by EKG criteria Negative stress echo Consider cardiac evaluation if clinically indicated Dr. Bahman Dailey MD (Electronically Signed) Final Date: 08 Nov 2021 12:12
== END | disposition home or self-care (01) ==
LOC: RADNMMAIN 09:05
PROVIDERS: ATTEND Internal Medicine
DX: R06.09 Other forms of dyspnea (principal); R60.9 Edema, unspecified; E78.5 Hyperlipidemia, unspecified; I10 Essential (primary) hypertension
CPT/HCPCS: 93351

== ENCOUNTER → 2022-02-25 | Outpatient (CLI) | payer MEDICARE, OTHER ==
--- NOTE | 2022-02-25 11:34 | MM ---
Reason for Exam: Clinical finding. Last screening mammogram was performed 12 month(s) ago. Patient History: Menarche at age 12. First Full-Term at age 17. Postmenopausal. Breast cancer, left, age 73. Estrogen for 4 years from age 52 until age 56. Progesterone for 4 years from age 52 until age 56. 04/02/2019, Lumpectomy on the Left side. 1989, Benign Excisional Biopsy on the left side. 04/02/2019, Malignant Core Biopsy on the left side. 01/10/2019, Malignant Core Biopsy on the left side. Mother had breast cancer, age 85. Tissue Density: There are scattered fibroglandular densities. Findings: Analyzed By CAD. Postsurgical changes within the left breast. There is stable asymmetry within the right breast. Benign vascular calcifications are present bilaterally. No significant interval changes are evident. Overall Assessment: Benign, BI-RAD 2 Management: Diagnostic Mammogram of both breasts in 1 year. A clinical breast exam by your physician is recommended on an annual basis and results should be correlated with mammographic findings. This exam should not preclude additional follow-up of suspicious palpable abnormalities. Results were given to the patient verbally at the time of exam. Electronically signed and approved by: Saqib Kiser D.O. Radiologis
== END | disposition home or self-care (01) ==
LOC: RADMAMWWP 11:01
PROVIDERS: ATTEND Surgery
DX: R92.1 Mammographic calcification found on diagnostic imaging of breast (principal); Z78.0 Asymptomatic menopausal state; Z85.3 Personal history of malignant neoplasm of breast; Z80.3 Family history of malignant neoplasm of breast
CPT/HCPCS: 77066; G0279; 77062

== ENCOUNTER → 2022-03-04 | Outpatient (CLI) | payer MEDICARE, OTHER ==
[2022-03-04 10:14] VITALS: BP 134/84; PULSE 73; RESP 16; TEMP 98.3
--- NOTE | 2022-03-04 10:19 | P.PN ---
Subjective Progress Note Date: 03/04/22 Principal diagnosis: left breast DCIS left breast DCIS The patient is a 76 year old white female who presented on 12-14-18 with a complaint of an abnormal mammogram showing some microcalcifications of concern in the left breast. This was done on 11-28-18, and a diagnostic mammogram was on 12-06-18. The patient did not feel anything in her breast. No nipple discharge, or skin changes. The nipples had been inverted for many years. There was no history of any trauma or infection in the breast. She underwent a stero biopsy of the left breast on 01-10-19 which showed low grade DCIS. She than underwent a lumpectomy on 04-02-19 which showed focal lobular carcinoma insitu but no residual DCIS. This was ER/Pr+. She did not have radiation therapy. She is taking an estrogen blocking agent, exemestane (Aromasin) as per medical oncology. She had a bilateral mammogram 02-25-22 this was benign BIRADS 2. She is personally reviewed. She is not complaining of any lumps masses or nodules in the past. She is not complaining of any abnormal nipple discharge or skin changes. She is continuing to take the Aromasin. Family History: 1. mother: breast at 86 2. father: lymphoma Hormonal History: menarche: 12 , breast fed: yes, first born at 18 menopause: 48 BCP: 1 year hormones: none Past Surgical History: 1. breast biopsy on the left 2. tubal 3. toe surgery Past Medical History: 1. HTN 2. high cholesterol Social History: smoke: none alcohol: twice a week drugs: none - Constitutional Constitutional: Denies chills, Denies fever - EENT Comment: sensitive to light, bilateral blephroplasty Eyes: denies blurred vision, denies pain Ears: bilateral: tinnitus - Breasts Breasts: bilateral: as per HPI - Cardiovascular Cardiovascular: Reports high blood pressure - Respiratory Respiratory: Denies cough - Gastrointestinal Gastrointestinal: Denies abdominal pain, Denies diarrhea, Denies nausea, Denies vomiting - Genitourinary (Female) Genitourinary: Denies dysuria, Denies hematuria - Menstruation Menstruation: Reports postmenopausal - Musculoskeletal Comment: arthritis - Integumentary Integumentary: Denies pruritus, Denies rash - Neurological Neurological: Denies numbness, Denies weakness - Psychiatric Psychiatric: Denies anxiety, Denies depression - Endocrine Endocrine: Denies fatigue, Denies weight change - Hematologic/Lymphatic Comment: none - Allergic/Immunologic: codiene Objective - Exam BMI: 30.6 - Constitutional General appearance: Present: cooperative - EENT Eyes: Present: EOMI ENT: Present: hearing grossly normal - Neck Neck: Present: normal ROM - Respiratory Respiratory: bilateral: CTA - Cardiovascular Heart sounds: normal: S1, S2 - Integumentary Integumentary: Present: normal turgor - Musculoskeletal Musculoskeletal: Present: gait normal - Psychiatric Psychiatric: Present: A&O x's 3, appropriate affect, intact judgment & insight - Additional findings Additional findings: Breast Exam: BRA: 40D inspection: bilateral grade 3 ptosis; fungal infection under both breast palpation: right breast: Multi-positional exam fibrocystic changes no dominant masses or nodules of concern Right axilla: No adenopathy of concern Left breast: Multi-positional exam fibrocystic changes no dominant masses or nodules of concern Left axilla: No adenopathy of concern Assessment and Plan Assessment: Present: Left breast DCIS no evidence of recurrence disgnosed in 2019 Plan: Continue Aromasin Bilateral mammogram in 1 year Follow-up In 6 months CC: Dr. Anguiano
== END ==
LOC: WWCWWP 09:43
PROVIDERS: ATTEND Surgery
DX: Z08 Encounter for follow-up examination after completed treatment for malignant neoplasm (principal); Z85.3 Personal history of malignant neoplasm of breast; I10 Essential (primary) hypertension; E78.00 Pure hypercholesterolemia, unspecified; Z88.5 Allergy status to narcotic agent

== ENCOUNTER → 2022-11-03 | Outpatient (CLI) | payer MEDICARE, OTHER ==
--- NOTE | 2022-11-03 10:13 | P.PN ---
Subjective Progress Note Date: 11/03/22 Principal diagnosis: left breast DCIS 2021 left breast DCIS DX. 2019 The patient is a 77 year old white female who presented on 12-14-18 with a complaint of an abnormal mammogram showing some microcalcifications of concern in the left breast. This was done on 11-28-18, and a diagnostic mammogram was on 12-06-18. The patient did not feel anything in her breast. No nipple discharge, or skin changes. The nipples had been inverted for many years. There was no history of any trauma or infection in the breast. She underwent a stero biopsy of the left breast on 01-10-19 which showed low grade DCIS. She than underwent a lumpectomy on 04-02-19 which showed focal lobular carcinoma insitu but no residual DCIS. This was ER/Pr+. She did not have radiation therapy. She is taking an estrogen blocking agent, exemestane (Aromasin) as per medical oncology. She had a bilateral mammogram 02-25-22 this was benign BIRADS 2. She is not complaining of any lumps masses or nodules in the past. She is not complaining of any abnormal nipple discharge or skin changes. She is continuing to take the Aromasin. Dr. Reyes Chaparro [id number] reviewed; continue Aromasin 25 mg by mouth daily for 5 years Family History: 1. mother: breast at 86 2. father: lymphoma Hormonal History: menarche: 12 , breast fed: yes, first born at 18 menopause: 48 BCP: 1 year hormones: none Past Surgical History: 1. breast biopsy on the left 2. tubal 3. toe surgery Past Medical History: 1. HTN 2. high cholesterol Social History: smoke: none alcohol: twice a week drugs: none - Constitutional Constitutional: Denies chills, Denies fever - EENT Comment: sensitive to light, bilateral blephroplasty Eyes: denies blurred vision, denies pain Ears: bilateral: tinnitus - Breasts Breasts: bilateral: as per HPI - Cardiovascular Cardiovascular: Reports high blood pressure - Respiratory Respiratory: Denies cough - Gastrointestinal Gastrointestinal: Denies abdominal pain, Denies diarrhea, Denies nausea, Denies vomiting - Genitourinary (Female) Genitourinary: Denies dysuria, Denies hematuria - Menstruation Menstruation: Reports postmenopausal - Musculoskeletal Comment: arthritis - Integumentary Integumentary: Denies pruritus, Denies rash - Neurological Neurological: Denies numbness, Denies weakness - Psychiatric Psychiatric: Denies anxiety, Denies depression - Endocrine Endocrine: Denies fatigue, Denies weight change - Hematologic/Lymphatic Comment: none - Allergic/Immunologic: codiene Objective - Constitutional General appearance: Present: cooperative - EENT Eyes: Present: EOMI ENT: Present: hearing grossly normal - Neck Neck: Present: normal ROM - Respiratory Respiratory: bilateral: CTA - Cardiovascular Rhythm: regular Heart sounds: normal: S1, S2 - Gastrointestinal General gastrointestinal: Present: soft - Integumentary Integumentary: Present: normal turgor - Musculoskeletal Musculoskeletal: Present: gait normal - Psychiatric Psychiatric: Present: A&O x's 3, appropriate affect, intact judgment & insight - Additional findings Additional findings: Breast Exam: BRA: 40D inspection: bilateral grade 3 ptosis; fungal infection under right breast palpation: right breast: Multi-positional exam fibrocystic changes no dominant masses or nodules of concern Right axilla: No adenopathy of concern Left breast: Multi-positional exam fibrocystic changes no dominant masses or nodules of concern Left axilla: No adenopathy of concern Assessment and Plan Assessment: Impression: Left breast DCIS status post resection 2019 no radiation therapy the patient is on Aromasin Fungal infection under right breast Plan: Nystatin Repeat bilateral mammogram January 2023, follow-up after this Continue to follow with medical oncology Continue Aromasin CC: Dr. Anguiano
[2022-11-03 10:17] VITALS: BP 162/89; PULSE 82; RESP 17; TEMP 97.9
== END ==
LOC: WWCWWP 09:56
PROVIDERS: ATTEND Surgery
DX: D05.12 Intraductal carcinoma in situ of left breast (principal); E78.00 Pure hypercholesterolemia, unspecified; I10 Essential (primary) hypertension; Z79.811 Long term (current) use of aromatase inhibitors; Z80.3 Family history of malignant neoplasm of breast; Z88.5 Allergy status to narcotic agent; Z79.899 Other long term (current) drug therapy

== ENCOUNTER 2023-02-28 09:56 | Inpatient (IN) | payer MEDICARE, OTHER ==
[2023-02-28] MEDS ORDERED: ASPIRIN 81 MG PO STA (10:17)
[2023-02-28] MEDS ORDERED: DILTIAZEM DRIP BOLUS FROM BAG 1 MG SOLN IV ONE ×2 (10:18→11:40)
--- NOTE | 2023-02-28 10:20 | ED ---
Arrhythmia/Palpitations HPI - General Chief Complaint: Arrhythmia/Palpitations Stated Complaint: HIGH BP CHEST PAIN Time Seen by Provider: 02/28/23 10:14 Source: patient, RN notes reviewed Mode of arrival: ambulatory Limitations: no limitations - History of Present Illness Initial Comments: 77-year-old female presents emergency Department with chief complaint of palpitations. Patient's felt like her heart was racing last night just slept well MORNING heart rate was still up along with her blood pressure. Patient does have a history of hypertension no history of HIV fibrillation. Patient denies any significant chest pain that she says slight pressure. Denies any nausea vomiting diarrhea constipation. Patient denies being on any anticoagulation. She does admit to occasional dizziness. - Related Data Home Medications Medication Instructions Recorded Confirmed Atorvastatin [Lipitor] 10 mg PO HS 03/17/15 11/03/22 Metoprolol Succinate [Toprol XL] 100 mg PO QAM 03/17/15 11/03/22 Calcium Carbonate/Vitamin D3 1 each PO DAILY 12/25/18 11/03/22 [Caltrate 600 Plus D3 Tablet] Multivit-Min/FA/Lycopen/Lutein 1 each PO QAM 12/25/18 11/03/22 [Centrum Silver Tablet] Ibuprofen [Advil] 400 mg PO QAM 03/29/19 11/03/22 Exemestane [Aromasin] 25 mg PO QAM 08/14/19 11/03/22 amLODIPine BES/OLMESARTAN MED 1 tab PO QAM 08/14/19 11/03/22 [Allison 5-20 mg Tablet] Previous Rx's Medication Instructions Recorded Nystatin/Triamcin 1 applic TOPICAL BID #30 gram 11/03/22 [Nystatin-Triamcinolone Cream] Allergies Allergy/AdvReac Type Severity Reaction Status Date / Time codeine AdvReac "groggy" Verified 03/04/22 10:11 Review of Systems ROS Statement: Those systems with pertinent positive or pertinent negative responses have been documented in the HPI. ROS Other: All systems not noted in ROS Statement are negative. Past Medical History Past Medical History: Cancer, GERD/Reflux, Hyperlipidemia, Hypertension Additional Past Medical History / Comment(s): BULDGING DISC LOWER BACK, VARICOSE VEINS, LEFT BREAST CANCER . History of Any Multi-Drug Resistant Organisms: None Reported Past Surgical History: Breast Surgery, Orthopedic Surgery, Tonsillectomy, Tubal Ligation Additional Past Surgical History / Comment(s): rt foot surgery, left breast bx. , Left Breast Lumpectomy (30 yrs ago) Past Anesthesia/Blood Transfusion Reactions: Previous Problems w/ Anesthesia Additional Past Anesthesia/Blood Transfusion Reaction / Comment(s): diff waking up Past Psychological History: No Psychological Hx Reported Smoking Status: Never smoker Past Alcohol Use History: Occasional Past Drug Use History: None Reported - Past Family History Mother Family Medical History: Cancer Additional Family Medical History / Comment(s): breast cancer General Exam Limitations: no limitations General appearance: alert, in no apparent distress Head exam: Present: atraumatic, normocephalic, normal inspection Eye exam: Present: normal appearance, PERRL, EOMI. Absent: scleral icterus, conjunctival injection, periorbital swelling ENT exam: Present: normal exam, mucous membranes moist Neck exam: Present: normal inspection. Absent: tenderness, meningismus, lymphadenopathy Respiratory exam: Present: normal lung sounds bilaterally. Absent: respiratory distress, wheezes, rales, rhonchi, stridor Cardiovascular Exam: Present: tachycardia, irregular rhythm, normal heart sounds. Absent: regular rate, normal rhythm, systolic murmur, diastolic murmur, rubs, gallop, clicks GI/Abdominal exam: Present: soft, normal bowel sounds. Absent: distended, tenderness, guarding, rebound, rigid Course Vital Signs 02/28/23 02/28/23 02/28/23 10:01 10:43 11:18 Temperature 98 F 98.7 F Pulse Rate 157 H 146 H 144 H Respiratory 18 Rate Blood Pressure 151/78 135/107 131/107 O2 Sat by Pulse 98 93 L Oximetry 02/28/23 11:42 Temperature Pulse Rate 142 H Respiratory Rate Blood Pressure 124/89 O2 Sat by Pulse Oximetry EKG Findings - EKG Comments: EKG Findings:: EKG performed at 10:12 atrial fibrillation with RVR rate of 153 QRS 87 QT/QTc 246/333 - EKG Results: EKG: interpreted by WINNIE Medical Decision Making - Medical Decision Making Was pt. sent in by a medical professional or institution (, PA, FIELD MARKETING ASSOCIATE, urgent care, hospital, or retirement...) When possible be specific @ -No Did you speak to anyone other than the patient for history (EMS, parent, family, police, friend...)? What history was obtained from this source @ -No Did you review nursing and triage notes (agree or disagree)? Why? @ -I reviewed and agree with nursing and triage notes Were old charts reviewed (outside hosp., previous admission, EMS record, old EKG, old radiological studies, urgent care reports/EKG's, retirement records)? Report findings @ -No old charts were reviewed Differential Diagnosis (chest pain, altered mental status, abdominal pain women, abdominal pain men, vaginal bleeding, weakness, fever, dyspnea, syncope, headache, dizziness, GI bleed, back pain, seizure, CVA, palpatations, mental health, musculoskeletal)? @ -Differential Palpitations Ventricular arrhythmias, atrial arrhythmias, myocardial infarction, anemia, thyrotoxicosis, electrolyte imbalance, hypokalemia, pulmonary embolism, pulmonary disease, drugs, alcohol, anxiety, stress.... This is not meant to be an all-inclusive list. EKG interpreted by me (3pts min.). @ -As above X-rays interpreted by me (1pt min.). @ -Chest x-ray shows no acute cardiopulmonary. CT interpreted by me (1pt min.). @ -None done U/S interpreted by me (1pt. min.). @ -None done What testing was considered but not performed or refused? (CT, X-rays, U/S, labs)? Why? @ -None What meds were considered but not given or refused? Why? @ -None Did you discuss the management of the patient with other professionals (professionals i.e. , PA, FIELD MARKETING ASSOCIATE, lab, RT, psych nurse, protective services social worker, outbound sales professional, teacher, court security officer, telephonic nurse case manager)? Give summary @ -No Was smoking cessation discussed for >3mins.? @ -No Was critical care preformed (if so, how long)? @ -35 minutes Were there social determinants of health that impacted care today? How? (Homelessness, low income, unemployed, alcoholism, drug addiction, transportation, low edu. Level, literacy, decrease access to med. care, assisted, rehab)? @ -No Was there de-escalation of care discussed even if they declined (Discuss DNR or withdrawal of care, Hospice)? DNR status @ -No What co-morbidities impacted this encounter? (DM, HTN, Smoking, COPD, CAD, Cancer, CVA, ARF, Chemo, Hep., AIDS, mental health diagnosis, sleep apnea, morbid obesity)? @ -None Was patient admitted / discharged? Hospital course, mention meds given and route, prescriptions, significant lab abnormalities, going to OR and other pertinent info. @ -Admitted patient's found to be in A. fib RVR patient has no history of ablation. Patient was started on Cardizem, heparin. Patient will be admitted for cardiology evaluation. Undiagnosed new problem with uncertain prognosis? @ -No Drug Therapy requiring intensive monitoring for toxicity (Heparin, Nitro, Insulin, Cardizem)? @ -Heparin, Cardizem Were any procedures done? @ -No Diagnosis/symptom? @ -A. fib RVR new-onset Acute, or Chronic, or Acute on Chronic? @ -Acute Uncomplicated (without systemic symptoms) or Complicated (systemic symptoms)? @ - complicated Side effects of treatment? @ -No Exacerbation, Progression, or Severe Exacerbation? @ -No Poses a threat to life or bodily function? How? (Chest pain, USA, MA, pneumonia, PE, COPD, DKA, ARF, appy, cholecystitis, CVA, Diverticulitis, Homicidal, Suicidal, threat to staff... and all critical care pts) @ -Yes cardiac risk - Lab Data Result diagrams: 02/28/23 10:20 02/28/23 10:20 Lab Results 02/28/23 02/28/23 02/28/23 Range/Units 10:20 10:20 10:20 WBC 8.5 (3.8-10.6) k/uL RBC 5.39 (3.80-5.40) m/uL Hgb 16.3 H (11.4-16.0) gm/dL Hct 49.1 H (34.0-46.0) % MCV 91.1 (80.0-100.0) fL MCH 30.2 (25.0-35.0) pg MCHC 33.2 (31.0-37.0) g/dL RDW 12.9 (11.5-15.5) % Plt Count 252 (150-450) k/uL MPV 8.1 Neutrophils % 73 % Lymphocytes % 19 % Monocytes % 6 % Eosinophils % 1 % Basophils % 0 % Neutrophils # 6.2 (1.3-7.7) k/uL Lymphocytes # 1.6 (1.0-4.8) k/uL Monocytes # 0.5 (0-1.0) k/uL Eosinophils # 0.1 (0-0.7) k/uL Basophils # 0.0 (0-0.2) k/uL PT 10.7 (9.0-12.0) sec INR 1.0 (<1.2) APTT 21.8 L (22.0-30.0) sec Sodium 139 (137-145) mmol/L Potassium 4.4 (3.5-5.1) mmol/L Chloride 106 (98-107) mmol/L Carbon Dioxide 24 (22-30) mmol/L Anion Gap 9 mmol/L BUN 24 H (7-17) mg/dL Creatinine 0.70 (0.52-1.04) mg/dL Est GFR (CKD-EPI)AfAm >90 (>60 ml/min/1.73 sqM) Est GFR (CKD-EPI)NonAf 83 (>60 ml/min/1.73 sqM) Glucose 116 H (74-99) mg/dL Calcium 9.7 (8.4-10.2) mg/dL Magnesium 2.0 (1.6-2.3) mg/dL Total Bilirubin 0.7 (0.2-1.3) mg/dL AST 29 (14-36) U/L ALT 32 (4-34) U/L Alkaline Phosphatase 79 (38-126) U/L Troponin I (0.000-0.034) ng/mL Total Protein 7.0 (6.3-8.2) g/dL Albumin 3.9 (3.5-5.0) g/dL TSH 1.480 (0.465-4.680) mIU/L 02/28/23 Range/Units 10:20 WBC (3.8-10.6) k/uL RBC (3.80-5.40) m/uL Hgb (11.4-16.0) gm/dL Hct (34.0-46.0) % MCV (80.0-100.0) fL MCH (25.0-35.0) pg MCHC (31.0-37.0) g/dL RDW (11.5-15.5) % Plt Count (150-450) k/uL MPV Neutrophils % % Lymphocytes % % Monocytes % % Eosinophils % % Basophils % % Neutrophils # (1.3-7.7) k/uL Lymphocytes # (1.0-4.8) k/uL Monocytes # (0-1.0) k/uL Eosinophils # (0-0.7) k/uL Basophils # (0-0.2) k/uL PT (9.0-12.0) sec INR (<1.2) APTT (22.0-30.0) sec Sodium (137-145) mmol/L Potassium (3.5-5.1) mmol/L Chloride (98-107) mmol/L Carbon Dioxide (22-30) mmol/L Anion Gap mmol/L BUN (7-17) mg/dL Creatinine (0.52-1.04) mg/dL Est GFR (CKD-EPI)AfAm (>60 ml/min/1.73 sqM) Est GFR (CKD-EPI)NonAf (>60 ml/min/1.73 sqM) Glucose (74-99) mg/dL Calcium (8.4-10.2) mg/dL Magnesium (1.6-2.3) mg/dL Total Bilirubin (0.2-1.3) mg/dL AST (14-36) U/L ALT (4-34) U/L Alkaline Phosphatase (38-126) U/L Troponin I 0.023 (0.000-0.034) ng/mL Total Protein (6.3-8.2) g/dL Albumin (3.5-5.0) g/dL TSH (0.465-4.680) mIU/L Critical Care Time Critical Care Time: Yes Total Critical Care Time: 35 Disposition Clinical Impression: Atrial fibrillation with RVR, New onset a-fib Disposition: ADMITTED IP TO THIS HOSP Condition: Fair Referrals: Gregory Anguiano MD [Primary Care Provider] - 1-2 days Time of Disposition: 12:08
[2023-02-28 10:33] LABS: Basophils % (A) 0 %; Eosinophils # (A) 0.1 k/uL (0-0.7); Eosinophils % (A) 1 %; HCT 49.1 % (34.0-46.0); HGB 16.3 gm/dL (11.4-16.0); Lymphocytes # (A) 1.6 k/uL (1.0-4.8); Lymphocytes % (A) 19 %; MCH 30.2 pg (25.0-35.0); MCHC 33.2 g/dL (31.0-37.0); MCV 91.1 fL (80.0-100.0); Mean Platelet Volume 8.1; Monocytes # (A) 0.5 k/uL (0-1.0); Monocytes % (A) 6 %; Neutrophils # (A) 6.2 k/uL (1.3-7.7); Neutrophils % (A) 73 %; Platelet Count 252 k/uL (150-450); RBC 5.39 m/uL (3.80-5.40); RDW 12.9 % (11.5-15.5); WBC 8.5 k/uL (3.8-10.6)
[2023-02-28] MEDS: DILTIAZEM 125 MG in SODIUM CHLORIDE 0.9% 100 ML IV SCH ×2 (10:47→19:36)
[2023-02-28 10:49] LABS: ALT 32 U/L (4-34); AST 29 U/L (14-36); African American GFR (CKD) >90 (>60 ml/min/1.73 sqM); Albumin 3.9 g/dL (3.5-5.0); Alkaline Phosphatase 79 U/L (38-126); Anion Gap 9 mmol/L; Blood Urea Nitrogen 24 mg/dL (7-17); Calcium 9.7 mg/dL (8.4-10.2); Carbon Dioxide 24 mmol/L (22-30); Chloride 106 mmol/L (98-107); Glucose 116 mg/dL (74-99); Non-African American GFR(CKD) 83 (>60 ml/min/1.73 sqM); Potassium 4.4 mmol/L (3.5-5.1); Sodium 139 mmol/L (137-145); Total Bilirubin 0.7 mg/dL (0.2-1.3)
[2023-02-28 11:14] LABS: Prothrombin Time 10.7 sec (9.0-12.0)
[2023-02-28 11:17] LABS: Partial Thromboplastin Time 21.8 sec (22.0-30.0)
--- NOTE | 2023-02-28 11:56 | XR ---
EXAMINATION TYPE: XR chest 2V DATE OF EXAM: 02/28/2023 COMPARISON: NONE TECHNIQUE: PA and lateral views submitted. HISTORY: Dysrhythmia FINDINGS: The lungs are clear and there is no pneumothorax, pleural effusion, or focal pneumonia. Heart size normal and no overt failure. Osseous structures demonstrate hypertrophic and degenerative changes of the spine. Calcified granuloma are noted in the left lung. AC joint arthropathy. Hyperinflation sugge sts COPD. IMPRESSION: 1. No acute process.
[2023-02-28] MEDS ORDERED: HEPARIN SODIUM 1,000 UN/ML (10ML VL) IV ONE (12:08)
[2023-02-28] MEDS ORDERED: HEPARIN SODIUM 1,000 UN/ML (10ML VL) IV PRN (12:08)
[2023-02-28] MEDS: HEPARIN SOD,PORK IN 0.45% NACL 25,000 UNIT in 0.45% NACL 1 250ML.BAG IV SCH (12:27)
[2023-02-28] MEDS: METOPROLOL SUCCINATE (ER) 100 MG TAB.ER.24H PO SCH (17:14)
--- NOTE | 2023-02-28 17:19 | P.HPIM ---
History of Present Illness H&P Date: 02/28/23 Munira Cole, he is a 77-year-old female patient of Dr. Anguiano who presented to [facility] emergency room with a chief complaint of palpitation and feeling her heart racing. She was evaluated in the emergency room vital examination on presentation revealed a temperature of 98 pulse 157 respiration 18 blood pressure 151/78 pulse ox 98% on room air Laboratory data revealed a white blood count of 8.5 hemoglobin 16.3 platelet count 252 BUN 24 creatinine 0.7 troponin 0.0-3 TSH 1.48 Testing in the emergency room revealed EKG done in the emergency room revealed atrial fibrillation with rapid ventricular response and nonspecific ST and T- wave abnormality, chest x-ray done in the emergency room revealed no acute process Patient was admitted to medical floor for further evaluation and treatment Past Medical History Past Medical History: Cancer, GERD/Reflux, Hyperlipidemia, Hypertension Additional Past Medical History / Comment(s): BULDGING DISC LOWER BACK, VARICOSE VEINS, LEFT BREAST CANCER. History of Any Multi-Drug Resistant Organisms: None Reported Past Surgical History: Breast Surgery, Orthopedic Surgery, Tonsillectomy, Tubal Ligation Additional Past Surgical History / Comment(s): Rt foot surgery, left breast bx., Left Breast Lumpectomy (30 yrs ago) Past Anesthesia/Blood Transfusion Reactions: Previous Problems w/ Anesthesia Additional Past Anesthesia/Blood Transfusion Reaction / Comment(s): Difficulty waking up from anesthesia Past Psychological History: No Psychological Hx Reported Smoking Status: Never smoker Past Alcohol Use History: Occasional Past Drug Use History: None Reported - Past Family History Father Additional Family Medical History / Comment(s): of lymphoma Mother Family Medical History: Cancer Additional Family Medical History / Comment(s): Breast cancer Medications and Allergies Home Medications Medication Instructions Recorded Confirmed Type Atorvastatin [Lipitor] 10 mg PO HS 03/17/15 02/28/23 History Metoprolol Succinate [Toprol XL] 100 mg PO QAM 03/17/15 02/28/23 History Calcium Carbonate/Vitamin D3 1 tab PO HS 12/25/18 02/28/23 History [Caltrate 600 Plus D3 Tablet] Multivit-Min/FA/Lycopen/Lutein 1 tab PO QAM 12/25/18 02/28/23 History [Centrum Silver Tablet] Exemestane [Aromasin] 25 mg PO QAM 08/14/19 02/28/23 History amLODIPine BES/OLMESARTAN MED 1 tab PO QAM 08/14/19 02/28/23 History [Allison 5-20 mg Tablet] Allergies Allergy/AdvReac Type Severity Reaction Status Date / Time codeine AdvReac "groggy" Verified 02/28/23 12:27 Physical Exam Vitals: Vital Signs Temp Pulse Pulse Resp BP BP Pulse Ox 02/28/23 15:21 98.1 F 96 16 112/85 95 02/28/23 14:11 141 H 02/28/23 13:47 97.9 F 141 H 18 144/85 96 02/28/23 13:31 97.4 F L 123 H 18 120/83 95 02/28/23 12:50 125/112 02/28/23 12:29 151 H 18 120/88 95 02/28/23 12:00 135 H 18 104/85 94 L 02/28/23 11:42 142 H 124/89 02/28/23 11:18 98.7 F 144 H 131/107 93 L 02/28/23 10:43 146 H 135/107 02/28/23 10:01 98 F 157 H 18 151/78 98 Intake and Output 02/28/23 02/28/23 02/28/23 06:59 14:59 22:59 Intake Total 4.333 Balance 4.333 Intake: Intake, IV Titration 4.333 Amount Diltiazem 125 mg In 4.333 Sodium Chloride 0.9% 100 ml @ 5 MG/HR 5 mls/hr IV .Q24H [facility] Rx#:[id number] Other: Voiding Method Toilet Weight 81.193 kg In general patient is alert and oriented x 3 in no distress HEENT head normocephalic and atraumatic Neck is supple no JVD no goiter no lymphadenopathy no carotid bruit Chest examination is clear to auscultation no crackles no wheezing Cardiac exam reveals irregular heart sounds S1 and S2 with tachycardia no gallops no murmurs Abdomen is soft nontender no organomegaly with normal bowel sounds Extremity exam reveals no edema no cyanosis or clubbing Neurological examination reveals no gross focal deficits Results CBC & Chem 7: 02/28/23 10:20 02/28/23 10:20 Labs: Abnormal Lab Results - Last 24 Hours (Table) 0802/28/23 02/28/23 Range/Units 10:20 10:20 10:20 Hgb 16.3 H (11.4-16.0) gm/dL Hct 49.1 H (34.0-46.0) % APTT 21.8 L (22.0-30.0) sec BUN 24 H (7-17) mg/dL Glucose 116 H (74-99) mg/dL Thrombosis Risk Factor Assmnt - Choose All That Apply Any of the Below Risk Factors Present?: Yes Each Factor Represents 1 point: Obesity (BMI >25), Varicose veins Other Risk Factors: Yes Each Risk Factor Represents 3 Points: Age 75 years or older Other congenital or acquired thrombophilia - If yes, enter type in comment: No Thrombosis Risk Factor Assessment Total Risk Factor Score: 5 Thrombosis Risk Factor Assessment Level: High Risk Assessment and Plan Plan: New-onset atrial fibrillation with rapid ventricular response Underlying history of hypertension Underlying history of hyperlipidemia Underlying history of gastroesophageal reflux disease Remote history of breast cancer with left breast lumpectomy 30 years ago At this time patient was admitted to telemetry floor She was started on IV Cardizem drip and IV heparin Home medications reviewed and reordered Cardiology consultation requested Will follow closely
[2023-02-28] MEDS: ATORVASTATIN 10 MG TAB PO SCH (20:19)
[2023-02-28] MEDS: CALCIUM CARB-VIT D 500 MG-5 MCG TAB PO SCH (20:19)
[2023-03-01 08:03] LABS: Mean Platelet Volume 8.7; Platelet Count 222 k/uL (150-450)
[2023-03-01] MEDS: LOSARTAN 50 MG TAB PO SCH (08:40)
[2023-03-01] MEDS: METOPROLOL SUCCINATE (ER) 100 MG TAB.ER.24H PO SCH (08:40)
[2023-03-01] MEDS: MULTIVITAMINS, THERA 1 EACH TAB PO SCH (08:41)
[2023-03-01] MEDS: DILTIAZEM 125 MG in SODIUM CHLORIDE 0.9% 100 ML IV SCH (08:43)
[2023-03-01] MEDS: HEPARIN SOD,PORK IN 0.45% NACL 25,000 UNIT in 0.45% NACL 1 250ML.BAG IV SCH (08:43)
[2023-03-01] MEDS ORDERED: ASPIRIN 325 MG TAB PO SCH (09:00)
[2023-03-01] MEDS ORDERED: amLODIPine 5 MG TAB PO SCH (09:00)
--- NOTE | 2023-03-01 09:10 | P.CRDCN ---
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 She has a past medical history of hypertension, hyperlipidemia, gastroesophageal reflux disease, left breast cancer. We have been asked to evaluate the patient for A. fib with RVR new onset. Patient states that on Monday she went to her water aerobics class was feeling fine all day until about 9 PM she noticed that her heart was racing. She checked her blood pressure and this was elevated but she had a lot of going to bed and then in the morning she checked her blood pressure again and it was still elevated and she continued to have palpitations. She told her that her blood pressure was elevated and she came into the hospital for further evaluation. She continues to feel some palpitations at this time. No ligh theadedness or dizziness. Patient was started on heparin drip and Cardizem drip currently at 10 mg per hour. Telemetry reveals atrial fibrillation 116 to 130. Patient denies any history of smoking. She usually drinks 2 beers per week which she did on Monday evening. Initial blood pressure 235/107 EKG #1 A. fib with ventricular rate of 153, #2 A. fib with ventricular rate of 118 Chest x-ray: No acute process WBC 8.5, hemoglobin 16.3, platelet count 252. INR 1. Electrolytes normal. BUN 24 creatinine 0.7. Glucose 116. Troponin negative 3. TSH 1.48. Liver function tests normal. Magnesium 2.0. Potassium 4.4. Home cardiac medications: Amlodipine/olmesartan 520 one daily, Lipitor 10 mg at bedtime, Toprol-XL 50 mg daily (not correct on system). Review Of Systems: At the time of my evaluation: Constitutional: No fever, no chills. No weakness, fatigue or lethargy. EENT: No headache. No dizziness. Lungs: No shortness of breath, cough, no sputum production. No wheezing. Cardiovascular: No chest pain, no lower extremity edema. Reports palpitations. No paroxysmal nocturnal dyspnea. No orthopnea. No lightheadedness or dizziness. No syncopal episodes. Abdominal: No abdominal pain. No nausea, vomiting. No diarrhea. No constipation. No bloody or tarry stools. Genitourinary: No dysuria.. No urinary retention. Musculoskeletal: No myalgias. No muscle weakness, no frequent falls. No back pain. No neck pain. Integumentary: No wounds. No rash. No unusual bruising. Neurologic: No aphasia. No facial droop. No change in mentation. No head injury. No headache. Physical examination: Gen: This is a 77-year-old female. She is sitting in recliner and appears to be comfortable and in no acute distress. VS: reviewed. Blood pressure 113/68 HEENT: Head is atraumatic, normocephalic. Pupils equal, round. Sclerae is anicteric. NECK: Supple. No JVD. . LUNGS: Clear to auscultation. No wheezes or rhonchi. No intercostal retractions. HEART: Irregular rate and rhythm. Tachycardic ABDOMEN: Soft No tenderness. EXTREMITIES: No pedal edema. No calf tenderness. NEUROLOGICAL: Patient is awake, alert and oriented x3. Assessment: Onset A. fib with RVR, paroxysmal Hypertension Hyperlipidemia Gastroesophageal reflux disease Left breast cancer Plan: Patient is currently on Cardizem drip at 10 mg per hour and heparin drip which will be discontinued Start patient on Lopressor 50 g twice daily and eliquis 5 mg twice daily Obtain 2-D echocardiogram and Doppler study to assess cardiac structure and function Further recommendations to follow based upon clinical course Thank you kindly for this consultation. Nurse practitioner note has been reviewed, I agree with documented findings and plan of care. Patient was seen and examined. Past Medical History Past Medical History: Cancer, GERD/Reflux, Hyperlipidemia, Hypertension Additional Past Medical History / Comment(s): BULDGING DISC LOWER BACK, VARICOSE VEINS, LEFT BREAST CANCER. History of Any Multi-Drug Resistant Organisms: None Reported Past Surgical History: Breast Surgery, Orthopedic Surgery, Tonsillectomy, Tubal Ligation Additional Past Surgical History / Comment(s): Rt foot surgery, left breast bx., Left Breast Lumpectomy (30 yrs ago) Past Anesthesia/Blood Transfusion Reactions: Previous Problems w/ Anesthesia Additional Past Anesthesia/Blood Transfusion Reaction / Comment(s): Difficulty waking up from anesthesia Past Psychological History: No Psychological Hx Reported Smoking Status: Never smoker Past Alcohol Use History: Occasional Past Drug Use History: None Reported - Past Family History Father Additional Family Medical History / Comment(s): of lymphoma Mother Family Medical History: Cancer Additional Family Medical History / Comment(s): Breast cancer Medications and Allergies Home Medications Medication Instructions Recorded Confirmed Type Atorvastatin [Lipitor] 10 mg PO HS 03/17/15 02/28/23 History Metoprolol Succinate [Toprol XL] 100 mg PO QAM 03/17/15 02/28/23 History Calcium Carbonate/Vitamin D3 1 tab PO HS 12/25/18 02/28/23 History [Caltrate 600 Plus D3 Tablet] Multivit-Min/FA/Lycopen/Lutein 1 tab PO QAM 12/25/18 02/28/23 History [Centrum Silver Tablet] Exemestane [Aromasin] 25 mg PO QAM 08/14/19 02/28/23 History amLODIPine BES/OLMESARTAN MED 1 tab PO QAM 08/14/19 02/28/23 History [Allison 5-20 mg Tablet] Allergies Allergy/AdvReac Type Severity Reaction Status Date / Time codeine AdvReac "groggy" Verified 02/28/23 12:27 Physical Exam Vitals: Vital Signs Temp Pulse Pulse Resp BP BP Pulse Ox 03/01/23 04:00 97.7 F 123 H 18 113/68 97 03/01/23 02:00 112 H 18 03/01/23 00:00 112 H 18 105/69 93 L 02/28/23 20:00 97.7 F 91 18 112/72 92 L 02/28/23 15:21 98.1 F 96 16 112/85 95 02/28/23 14:11 141 H 02/28/23 13:47 97.9 F 141 H 18 144/85 96 02/28/23 13:31 97.4 F L 123 H 18 120/83 95 02/28/23 12:50 125/112 02/28/23 12:29 151 H 18 120/88 95 02/28/23 12:00 135 H 18 104/85 94 L 02/28/23 11:42 142 H 124/89 02/28/23 11:18 98.7 F 144 H 131/107 93 L 02/28/23 10:43 146 H 135/107 02/28/23 10:01 98 F 157 H 18 151/78 98 Intake and Output 02/28/23 03/01/23 03/01/23 22:59 06:59 14:59 Intake Total 253.966 Balance 253.966 Intake: Intake, IV Titration 143.966 Amount Diltiazem 125 mg In 79.5 Sodium Chloride 0.9% 100 ml @ 5 MG/HR 5 mls/hr IV .Q24H [facility] Rx#:[id number] Heparin Sod,Pork in 0.45% 64.466 NaCl 25,000 unit In 0.45 % NaCl 1 250ml.bag @ 12 UNITS/KG/HR 9.743 mls/hr IV .Q24H [facility] Rx#: [id number] Oral 110 Other: Voiding Method Toilet Toilet # Voids 1 1 Results 03/01/23 07:27 02/28/23 10:20 Cardiac Enzymes 02/28/23 02/28/23 02/28/23 Range/Units 10:20 10:20 12:30 AST 29 (14-36) U/L Troponin I 0.023 0.021 (0.000-0.034) ng/mL 02/28/23 Range/Units 14:57 AST (14-36) U/L Troponin I 0.019 (0.000-0.034) ng/mL Coagulation 02/28/23 02/28/23 03/01/23 Range/Units 10:20 18:17 00:14 PT 10.7 (9.0-12.0) sec APTT 21.8 L 34.9 H 64.9 H (22.0-30.0) sec CBC 02/28/23 03/01/23 Range/Units 10:20 07:27 WBC 8.5 (3.8-10.6) k/uL RBC 5.39 (3.80-5.40) m/uL Hgb 16.3 H (11.4-16.0) gm/dL Hct 49.1 H (34.0-46.0) % Plt Count 252 222 (150-450) k/uL Comprehensive Metabolic Panel 02/28/23 Range/Units 10:20 Sodium 139 (137-145) mmol/L Potassium 4.4 (3.5-5.1) mmol/L Chloride 106 (98-107) mmol/L Carbon Dioxide 24 (22-30) mmol/L BUN 24 H (7-17) mg/dL Creatinine 0.70 (0.52-1.04) mg/dL Glucose 116 H (74-99) mg/dL Calcium 9.7 (8.4-10.2) mg/dL AST 29 (14-36) U/L ALT 32 (4-34) U/L Alkaline Phosphatase 79 (38-126) U/L Total Protein 7.0 (6.3-8.2) g/dL Albumin 3.9 (3.5-5.0) g/dL Current Medications Generic Name Dose Route Start Last Admin Trade Name Freq PRN Reason Stop Dose Admin Amlodipine Besylate 5 mg 03/01/23 09:00 Amlodipine 5 Mg Tab PO QAM [facility] Aspirin 325 mg 03/01/23 09:00 Aspirin 325 Mg Tab PO DAILY [facility] Atorvastatin Calcium 10 mg 02/28/23 21:00 02/28/23 20:19 Atorvastatin 10 Mg Tab PO 10 mg HS [facility] Administration Calcium Carbonate 1 each 02/28/23 21:00 02/28/23 20:19 Calcium Carb-Vit D 500 Mg-5 Mcg Tab PO 1 each HS [facility] Administration Heparin Sodium (Porcine) 0 unit 02/28/23 12:08 02/28/23 19:07 Heparin Sodium 1,000 Un/Ml (10ml Vl) IV 4,000 unit Q6HR PRN Administration Low PTT Protocol Diltiazem HCl 125 mg/ Sodium 125 mls @ 5 mls/hr 02/28/23 10:45 02/28/23 19:36 Chloride IV 10 mg/hr .Q24H [facility] 10 mls/hr Administration 5 MG/HR Heparin Sodium/Sodium Chloride 250 mls @ 9.743 mls/hr 02/28/23 12:15 02/28/23 19:04 25,000 unit/ Sodium Chloride IV 15 units/kg/hr .Q24H [facility] 12.179 mls/hr Titration Protocol 12 UNITS/KG/HR Losartan Potassium 100 mg 03/01/23 09:00 Losartan 50 Mg Tab PO QAM [facility] Metoprolol Succinate 100 mg 02/28/23 17:15 02/28/23 17:14 Metoprolol Succinate (Er) 100 Mg Tab.Er.24h PO [facility] [place]ivitamins 1 each 03/01/23 09:00 Multivitamins, Thera 1 Each Tab [facility] [place] Non-Formulary Medication 25 mg 03/01/23 09:00 Exemestane [Aromasin] PO QAM [facility] Intake and Output 02/28/23 03/01/23 03/01/23 22:59 06:59 14:59 Intake Total 253.966 Balance 253.966 Intake: Intake, IV Titration 143.966 Amount Diltiazem 125 mg In 79.5 Sodium Chloride 0.9% 100 ml @ 5 MG/HR 5 mls/hr IV .Q24H [facility] Rx#:[id number] Heparin Sod,Pork in 0.45% 64.466 NaCl 25,000 unit In 0.45 % NaCl 1 250ml.bag @ 12 UNITS/KG/HR 9.743 mls/hr IV .Q24H [facility] Rx#: [id number] Oral 110 Other: Voiding Method Toilet Toilet # Voids 1 1 03/01/23 07:27 02/28/23 10:20
--- NOTE | 2023-03-01 11:23 | P.PN ---
Subjective Progress Note Date: 03/01/23 Munira Cole, he is a 77-year-old female patient of Dr. Anguiano who presented to [facility] emergency room with a chief complaint of palpitation and feeling her heart racing. She was evaluated in the emergency room vital examination on presentation revealed a temperature of 98 pulse 157 respiration 18 blood pressure 151/78 pulse ox 98% on room air Laboratory data revealed a white blood count of 8.5 hemoglobin 16.3 platelet count 252 BUN 24 creatinine 0.7 troponin 0.0-3 TSH 1.48 Testing in the emergency room revealed EKG done in the emergency room revealed atrial fibrillation with rapid ventricular response and nonspecific ST and T- wave abnormality, chest x-ray done in the emergency room revealed no acute process Patient was admitted to medical floor for further evaluation and treatment on 03/01/2023 patient is alert and oriented 3. Patient remains on Cardizem and heparin drips. per cardiology plans to DC Cardizem and heparin and transitioned to oral eliquis and Lopressor. 2-D echocardiogram ordered. Patient still having elevated heart rate 120s, blood pressure 139/71. Patient denies chest pain or shortness of breath. Patient denies nausea vomiting or diarrhea. Patient denies any urinary burning or frequency Objective - Vital Signs Vital signs: Vital Signs Temp 97.6 F 03/01/23 08:00 Pulse 130 H 03/01/23 08:00 Resp 18 03/01/23 08:00 BP 139/71 03/01/23 08:00 Pulse Ox 95 03/01/23 08:00 FiO2 Intake & Output 02/28/23 03/01/23 03/01/23 18:59 06:59 18:59 Intake Total 114.333 143.966 531.243 Balance 114.333 143.966 531.243 Weight 81.193 kg Intake: Intake, IV Titration 4.333 143.966 291.243 Amount Diltiazem 125 mg In 4.333 79.5 125 Sodium Chloride 0.9% 100 ml @ 5 MG/HR 5 mls/hr IV .Q24H [facility] Rx#:[id number] Heparin Sod,Pork in 0.45% 64.466 166.243 NaCl 25,000 unit In 0.45 % NaCl 1 250ml.bag @ 12 UNITS/KG/HR 9.743 mls/hr IV .Q24H [facility] Rx#: [id number] Oral 110 240 Other: Voiding Method Toilet Toilet # Voids 1 - Exam In general patient is alert and oriented x 3 in no distress HEENT head normocephalic and atraumatic Neck is supple no JVD no goiter no lymphadenopathy no carotid bruit Chest examination is clear to auscultation no crackles no wheezing Cardiac exam reveals irregular heart sounds S1 and S2 with tachycardia no gallops no murmurs Abdomen is soft nontender no organomegaly with normal bowel sounds Extremity exam reveals no edema no cyanosis or clubbing Neurological examination reveals no gross focal deficits - Labs CBC & Chem 7: 03/01/23 07:27 02/28/23 10:20 Labs: Abnormal Lab Results - Last 24 Hours (Table) 02/28/23 03/01/23 03/01/23 Range/Units 18:17 00:14 07:27 APTT 34.9 H 64.9 H 54.6 H (22.0-30.0) sec Assessment and Plan Assessment: New-onset atrial fibrillation with rapid ventricular response Underlying history of hypertension Underlying history of hyperlipidemia Underlying history of gastroesophageal reflux disease Remote history of breast cancer with left breast lumpectomy 30 years ago At this time patient was admitted to telemetry floor She was started on IV Cardizem drip and IV heparin Home medications reviewed and reordered Cardiology consultation requested Will follow closely
[2023-03-01] MEDS: APIXABAN 5 MG TAB PO SCH ×2 (12:01→20:10)
[2023-03-01] MEDS: METOPROLOL TARTRATE 50 MG TAB PO SCH ×2 (16:33→20:10)
[2023-03-01] MEDS: CALCIUM CARB-VIT D 500 MG-5 MCG TAB PO SCH (20:10)
[2023-03-01] MEDS: ATORVASTATIN 10 MG TAB PO SCH (20:10)
[2023-03-01] MEDS ORDERED: METOPROLOL TARTRATE 50 MG TAB PO SCH (21:00)
[2023-03-02] MEDS: METOPROLOL TARTRATE 50 MG TAB PO SCH ×3 (05:19→20:08)
[2023-03-02 08:17] LABS: Basophils % (A) 0 %; Eosinophils # (A) 0.1 k/uL (0-0.7); Eosinophils % (A) 2 %; HCT 45.8 % (34.0-46.0); HGB 14.9 gm/dL (11.4-16.0); Lymphocytes # (A) 1.5 k/uL (1.0-4.8); Lymphocytes % (A) 19 %; MCHC 32.6 g/dL (31.0-37.0); MCV 92.1 fL (80.0-100.0); Mean Platelet Volume 8.6; Monocytes # (A) 0.4 k/uL (0-1.0); Monocytes % (A) 5 %; Neutrophils # (A) 5.8 k/uL (1.3-7.7); Neutrophils % (A) 72 %; Platelet Count 239 k/uL (150-450); RBC 4.98 m/uL (3.80-5.40); RDW 12.9 % (11.5-15.5)
[2023-03-02] MEDS: AMIODARONE 200 MG TAB PO SCH ×2 (09:08→20:07)
[2023-03-02] MEDS: MULTIVITAMINS, THERA 1 EACH TAB PO SCH (09:09)
[2023-03-02] MEDS: APIXABAN 5 MG TAB PO SCH ×2 (09:09→20:07)
[2023-03-02] MEDS: LOSARTAN 50 MG TAB PO SCH (09:09)
[2023-03-02 11:14] LABS: African American GFR (CKD) >90 (>60 ml/min/1.73 sqM); Anion Gap 7 mmol/L; Blood Urea Nitrogen 17 mg/dL (7-17); Calcium 9.4 mg/dL (8.4-10.2); Carbon Dioxide 25 mmol/L (22-30); Chloride 107 mmol/L (98-107); Glucose 165 mg/dL (74-99); Non-African American GFR(CKD) 84 (>60 ml/min/1.73 sqM); Potassium 4.6 mmol/L (3.5-5.1); Sodium 139 mmol/L (137-145)
--- NOTE | 2023-03-02 11:28 | P.PN ---
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 She has a past medical history of hypertension, hyperlipidemia, gastroesophageal reflux disease, left breast cancer. We have been asked to evaluate the patient for A. fib with RVR new onset. Patient states that on Monday she went to her water aerobics class was feeling fine all day until about 9 PM she noticed that her heart was racing. She checked her blood pressure and this was elevated but she had a lot of going to bed and then in the morning she checked her blood pressure again and it was still elevated and she continued to have palpitations. She told her that her blood pressure was elevated and she came into the hospital for further evaluation. She continues to feel some palpitations at this time. No lightheadedness or dizziness. Patient was started on heparin drip and Cardizem drip currently at 10 mg per hour. Telemetry reveals atrial fibrillation 116 to 130. Patient denies any history of smoking. She usually drinks 2 beers per wee k which she did on Monday evening. Initial blood pressure 235/107 EKG #1 A. fib with ventricular rate of 153, #2 A. fib with ventricular rate of 118 Chest x-ray: No acute process WBC 8.5, hemoglobin 16.3, platelet count 252. INR 1. Electrolytes normal. BUN 24 creatinine 0.7. Glucose 116. Troponin negative 3. TSH 1.48. Liver function tests normal. Magnesium 2.0. Potassium 4.4. Home cardiac medications: Amlodipine/olmesartan 520 one daily, Lipitor 10 mg at bedtime, Toprol-XL 50 mg daily (not correct on system). 03/02 The patient remains in atrial fibrillation with RVR despite current medications. She is running 140-160 and is on Lopressor 50 mg 3 times daily. Patient has some palpitations. No lightheadedness or dizziness. Blood pressure 111/66, pulse ox 90% on room air. CBC is within normal limits. Glucose is 165 otherwise electrolytes and renal function are normal. Echocardiogram is pending. Physical examination: Gen: This is a 77-year-old female. She is sitting in recliner and appears to be comfortable and in no acute distress. VS: reviewed. HEENT: Head is atraumatic, normocephalic. Pupils equal, round. Sclerae is anicteric. NECK: Supple. No JVD. . LUNGS: Clear to auscultation. No wheezes or rhonchi. No intercostal retractions. HEART: Irregular rate and rhythm. Tachycardic EXTREMITIES: No pedal edema. No calf tenderness. NEUROLOGICAL: Patient is awake, alert and oriented x3. Assessment: New onset A. fib with RVR, paroxysmal Hypertension Hyperlipidemia Gastroesophageal reflux disease Left breast cancer Plan: Continue patient on Lopressor 50 mg twice daily and eliquis 5 mg twice daily Start patient on amiodarone 400 mg twice daily Obtain 2-D echocardiogram and Doppler study to assess cardiac structure and function Patient to be nothing by mouth at midnight and if heart rate is not controlled by morning, plan for GRISELDA and cardioversion. Further recommendations to follow based upon clinical course Nurse practitioner note has been reviewed, I agree with documented findings and plan of care. Patient was seen and examined. Objective - Vital Signs Vital signs: Vital Signs Temp 97.6 F 03/02/23 07:47 Pulse 138 H 03/02/23 07:47 Resp 16 03/02/23 08:00 BP 111/66 03/02/23 07:47 Pulse Ox 98 03/02/23 07:47 FiO2 Intake & Output 03/01/23 03/02/23 03/02/23 18:59 06:59 18:59 Intake Total 881.243 368 Balance 881.243 368 Intake: IV 10 Invasive Line 2 10 Intake, IV Titration 291.243 Amount Diltiazem 125 mg In 125 Sodium Chloride 0.9% 100 ml @ 5 MG/HR 5 mls/hr IV .Q24H [facility] Rx#:[id number] Heparin Sod,Pork in 0.45% 166.243 NaCl 25,000 unit In 0.45 % NaCl 1 250ml.bag @ 12 UNITS/KG/HR 9.743 mls/hr IV .Q24H [facility] Rx#: [id number] Oral 590 358 Other: Voiding Method Toilet Toilet # Voids 1 - Labs CBC & Chem 7: 03/02/23 07:32 03/02/23 07:32 Labs: Abnormal Lab Results - Last 24 Hours (Table) 03/02/23 Range/Units 07:32 Glucose 165 H (74-99) mg/dL
--- NOTE | 2023-03-02 13:49 | P.PN ---
Subjective Progress Note Date: 03/02/23 Munira Cole, he is a 77-year-old female patient of Dr. Anguiano who presented to [facility] emergency room with a chief complaint of palpitation and feeling her heart racing. She was evaluated in the emergency room vital examination on presentation revealed a temperature of 98 pulse 157 respiration 18 blood pressure 151/78 pulse ox 98% on room air Laboratory data revealed a white blood count of 8.5 hemoglobin 16.3 platelet count 252 BUN 24 creatinine 0.7 troponin 0.0-3 TSH 1.48 Testing in the emergency room revealed EKG done in the emergency room revealed atrial fibrillation with rapid ventricular response and nonspecific ST and T- wave abnormality, chest x-ray done in the emergency room revealed no acute process Patient was admitted to medical floor for further evaluation and treatment on 03/01/2023 patient is alert and oriented 3. Patient remains on Cardizem and heparin drips. per cardiology plans to DC Cardizem and heparin and transitioned to oral eliquis and Lopressor. 2-D echocardiogram ordered. Patient still having elevated heart rate 120s, blood pressure 139/71. Patient denies chest pain or shortness of breath. Patient denies nausea vomiting or diarrhea. Patient denies any urinary burning or frequency On 03/02/2023 patient was seen and examined on the telemetry floor, she is alert and oriented 3 in no apparent distress, there is no fever or chills no headache or dizziness no chest pain no shortness of breath no cough no nausea or vomiting no abdominal pain no diarrhea and no urinary symptoms. Heart rate is still not well controlled, patient was evaluated by cardiology earlier, and amiodarone was added to her medication regimen, patient is not yet cleared for discharge. Objective - Vital Signs Vital signs: Vital Signs Temp 98.8 F 03/02/23 11:53 Pulse 143 H 03/02/23 11:53 Resp 18 03/02/23 11:53 BP 133/86 03/02/23 11:53 Pulse Ox 96 03/02/23 11:53 FiO2 Intake & Output 03/01/23 03/02/23 03/02/23 18:59 06:59 18:59 Intake Total 881.243 608 Balance 881.243 608 Intake: IV 10 Invasive Line 2 10 Intake, IV Titration 291.243 Amount Diltiazem 125 mg In 125 Sodium Chloride 0.9% 100 ml @ 5 MG/HR 5 mls/hr IV .Q24H [facility] Rx#:[id number] Heparin Sod,Pork in 0.45% 166.243 NaCl 25,000 unit In 0.45 % NaCl 1 250ml.bag @ 12 UNITS/KG/HR 9.743 mls/hr IV .Q24H [facility] Rx#: [id number] Oral 590 598 Other: Voiding Method Toilet Toilet # Voids 1 - Exam In general patient is alert and oriented x 3 in no distress HEENT head normocephalic and atraumatic Neck is supple no JVD no goiter no lymphadenopathy no carotid bruit Chest examination is clear to auscultation no crackles no wheezing Cardiac exam reveals irregular heart sounds S1 and S2 with tachycardia no gallops no murmurs Abdomen is soft nontender no organomegaly with normal bowel sounds Extremity exam reveals no edema no cyanosis or clubbing Neurological examination reveals no gross focal deficits - Labs CBC & Chem 7: 03/02/23 07:32 03/02/23 07:32 Labs: Abnormal Lab Results - Last 24 Hours (Table) 03/02/23 Range/Units 07:32 Glucose 165 H (74-99) mg/dL Assessment and Plan Plan: New-onset atrial fibrillation with rapid ventricular response Underlying history of hypertension Underlying history of hyperlipidemia Underlying history of gastroesophageal reflux disease Remote history of breast cancer with left breast lumpectomy 30 years ago At this time patient was admitted to telemetry floor She was started on IV Cardizem drip and IV heparin Home medications reviewed and reordered Cardiology consultation requested Will follow closely
[2023-03-02] MEDS: CALCIUM CARB-VIT D 500 MG-5 MCG TAB PO SCH (20:07)
[2023-03-02] MEDS: ATORVASTATIN 10 MG TAB PO SCH (20:07)
[2023-03-03 03:12] VITALS: RESP 16
[2023-03-03 08:46] VITALS: BP 122/61; PULSE 85; TEMP 98.5
[2023-03-03 08:51] LABS: Basophils % (A) 0 %; Eosinophils # (A) 0.1 k/uL (0-0.7); Eosinophils % (A) 1 %; HCT 42.9 % (34.0-46.0); HGB 14.1 gm/dL (11.4-16.0); Lymphocytes # (A) 1.4 k/uL (1.0-4.8); Lymphocytes % (A) 15 %; MCH 30.4 pg (25.0-35.0); MCHC 32.9 g/dL (31.0-37.0); MCV 92.5 fL (80.0-100.0); Mean Platelet Volume 7.9; Monocytes # (A) 0.6 k/uL (0-1.0); Monocytes % (A) 6 %; Neutrophils % (A) 77 %; Platelet Count 212 k/uL (150-450); RBC 4.64 m/uL (3.80-5.40); RDW 12.9 % (11.5-15.5); WBC 9.1 k/uL (3.8-10.6)
[2023-03-03] MEDS: MULTIVITAMINS, THERA 1 EACH TAB PO SCH (08:52)
[2023-03-03] MEDS: LOSARTAN 50 MG TAB PO SCH (08:52)
[2023-03-03] MEDS: METOPROLOL TARTRATE 50 MG TAB PO SCH (08:52)
[2023-03-03] MEDS: APIXABAN 5 MG TAB PO SCH (08:53)
[2023-03-03] MEDS: AMIODARONE 200 MG TAB PO SCH (08:53)
[2023-03-03 09:16] LABS: ALT 35 U/L (4-34); AST 30 U/L (14-36); African American GFR (CKD) >90 (>60 ml/min/1.73 sqM); Alkaline Phosphatase 78 U/L (38-126); Anion Gap 7 mmol/L; Blood Urea Nitrogen 18 mg/dL (7-17); Calcium 9.4 mg/dL (8.4-10.2); Carbon Dioxide 27 mmol/L (22-30); Chloride 103 mmol/L (98-107); Glucose 125 mg/dL (74-99); Non-African American GFR(CKD) 84 (>60 ml/min/1.73 sqM); Potassium 4.7 mmol/L (3.5-5.1); Sodium 137 mmol/L (137-145); Total Bilirubin 0.9 mg/dL (0.2-1.3); Total Protein 7.1 g/dL (6.3-8.2)
--- NOTE | 2023-03-03 10:27 | P.DS ---
Providers Date of admission: 02/28/23 12:11 Expected date of discharge: 03/03/23 Attending physician: Tequila Gray Consults: 02/28/23 12:08 Consult Physician Urgent Consulting Provider: Rupesh Sparks Consult Reason/Comments: afib rvr Do you want consulting provider notified?: Yes Primary care physician: Gregory Anguiano [facility] Hospital Course: Discharge diagnosis New-onset atrial fibrillation with rapid ventricular response Underlying history of hypertension Underlying history of hyperlipidemia Underlying history of gastroesophageal reflux disease Remote history of breast cancer with left breast lumpectomy 30 years ago Hospital course Munira Cole, he is a 77-year-old female patient of Dr. Anguiano who presented to [facility] emergency room with a chief complaint of palpitation and feeling her heart racing. She was evaluated in the emergency room vital examination on presentation revealed a temperature of 98 pulse 157 respiration 18 blood pressure 151/78 pulse ox 98% on room air Laboratory data revealed a white blood count of 8.5 hemoglobin 16.3 platelet count 252 BUN 24 creatinine 0.7 troponin 0.0-3 TSH 1.48 Testing in the emergency room revealed EKG done in the emergency room revealed atrial fibrillation with rapid ventricular response and nonspecific ST and T- wave abnormality, chest x-ray done in the emergency room revealed no acute process Patient was admitted to medical floor for further evaluation and treatment on 03/01/2023 patient is alert and oriented 3. Patient remains on Cardizem and heparin drips. per cardiology plans to DC Cardizem and heparin and transitioned to oral eliquis and Lopressor. 2-D echocardiogram ordered. Patient still having elevated heart rate 120s, blood pressure 139/71. Patient denies chest pain or shortness of breath. Patient denies nausea vomiting or diarrhea. Patient denies any urinary burning or frequency On 03/02/2023 patient was seen and examined on the telemetry floor, she is alert and oriented 3 in no apparent distress, there is no fever or chills no headache or dizziness no chest pain no shortness of breath no cough no nausea or vomiting no abdominal pain no diarrhea and no urinary symptoms. Heart rate is still not well controlled, patient was evaluated by cardiology earlier, and amiodarone was added to her medication regimen, patient is not yet cleared for discharge. 03/03/2023 patient is alert and oriented 3. She is heart rate converted last night after the initiation of amiodarone no plans for cardioversion at this time per cardiology services patient has been cleared for discharge. Patient was started on eliquis for anticoagulation and amiodarone. Patient to follow up with cardiology services PCP for further management patient denies chest pain or shortness breath. Patient denies nausea vomiting or diarrhea. Patient denies any urinary burning or frequency Patient Condition at Discharge: Stable Plan - Discharge Summary Discharge Rx Participant: No New Discharge Prescriptions: New Amiodarone [Cordarone] 400 mg PO BID #90 tab Apixaban [Eliquis] 5 mg PO BID #180 tab Metoprolol Tartrate [Lopressor] 50 mg PO TID #270 tab Losartan [Cozaar] 100 mg PO QAM 30 Days #30 tab Continue Atorvastatin [Lipitor] 10 mg PO HS Calcium Carbonate/Vitamin D3 [Caltrate 600 Plus D3 20 Mcg (800 Iu)] 1 tab PO HS Multivit-Min/FA/Lycopen/Lutein [Centrum Silver Tablet] 1 tab PO QAM Exemestane [Aromasin] 25 mg PO QAM Discontinued Metoprolol Succinate [Toprol XL] 100 mg PO QAM amLODIPine BES/OLMESARTAN MED [Allison 5-20 mg Tablet] 1 tab PO QAM Discharge Medication List Atorvastatin [Lipitor] 10 mg PO HS 03/17/15 [History] Calcium Carbonate/Vitamin D3 [Caltrate 600 Plus D3 20 Mcg (800 Iu)] 1 tab PO HS 12/25/18 [History] Multivit-Min/FA/Lycopen/Lutein [Centrum Silver Tablet] 1 tab PO QAM 12/25/18 [History] Exemestane [Aromasin] 25 mg PO QAM 08/14/19 [History] Amiodarone [Cordarone] 400 mg PO BID #90 tab 03/03/23 [Rx] Apixaban [Eliquis] 5 mg PO BID #180 tab 03/03/23 [Rx] Losartan [Cozaar] 100 mg PO QAM 30 Days #30 tab 03/03/23 [Rx] Metoprolol Tartrate [Lopressor] 50 mg PO TID #270 tab 03/03/23 [Rx] Follow up Appointment(s)/Referral(s): Prosper Lincoln MD [STAFF PHYSICIAN] - 1 Week Balboa,Gregory S, MD [Primary Care Provider] - 1-2 days Activity/Diet/Wound Care/Special Instructions: Activity as tolerated Diet heart healthy Discharge Disposition: HOME SELF-CARE
--- NOTE | 2023-03-03 12:20 | CA ---
Transthoracic Echo Report Name: Munira Cole Age: 77 Gender: F : 1945 Exam Date: 03/03/2023 09:12 Exam Location: [place] [facility] Ht (in): 64 Wt (lb): 179 Ordering Physician: Shey Vaughn Attending/Referring Phys: [id number], Johana Shank Pinner Marissa Hu RDCS Procedure CPT: Indications: LVF, schedule later today, still in af rvr Cardiac Hx: Technical Quality: Fair Contrast 1: Total Dose (mL): Contrast 2: Total Dose (mL): MEASUREMENTS (Male / Female) Normal Values 2D ECHO LV Diastolic Diameter PLAX 4.4 cm 4.2 - 5.9 / 3.9 - 5.3 cm LV Systolic Diameter PLAX 3.0 cm IVS Diastolic Thickness 1.5 cm 0.6 - 1.0 / 0.6 - 0.9 cm LVPW Diastolic Thickness 1.4 cm 0.6 - 1.0 / 0.6 - 0.9 cm LV Relative Wall Thickness 0.7 RV Internal Dim ED PLAX 2.6 cm LA Volume 80.6 cm??? 18 - 58 / 22 - 52 cm??? M-MODE Aortic Root Diameter MM 3.0 cm LA Systolic Diameter MM 5.2 cm LA Ao Ratio MM 1.7 AV Cusp Separation MM 1.3 cm DOPPLER AV Peak Velocity 258.8 cm/s AV Peak Gradient 26.8 mmHg AV Mean Velocity 186.0 cm/s AV Mean Gradient 15.4 mmHg AV Velocity Time Integral 51.0 cm LVOT Peak Velocity 147.7 cm/s LVOT Peak Gradient 8.7 mmHg LVOT Velocity Time Integral 33.1 cm MV Area PHT 3.6 cm??? Mitral E Point Velocity 117.9 cm/s Mitral A Point Velocity 61.0 cm/s Mitral E to A Ratio 1.9 MV Deceleration Time 209.5 ms MV E' Velocity 6.7 cm/s Mitral E to MV E' Ratio 17.5 TR Peak Velocity 248.7 cm/s TR Peak Gradient 24.7 mmHg Right Ventricular Systolic Press 27.4 mmHg FINDINGS Left Ventricle Moderately increased left ventricular wall thickness. Normal left ventricular systolic function with no obvious regional wall motion abnormalities. Left ventricular cavity size normal. Left ventricular ejection fraction is estimated at 55-60 %. Right Ventricle Normal right ventricular size and function. Right ventricular systolic pressure within normal limits. Right Atrium Normal right atrial size. Interatrial septum bowed toward the right . Left Atrium Severely increased left atrial volume. Mildly increased left atrial area. Mitral Valve Structurally normal mitral valve. No mitral stenosis. [id number] mitral regurgitation. Aortic Valve Mild aortic stenosis with a peak gradient of 27 mmHg and a mean gradient of 15 mmHg. No aortic regurgitation. Tricuspid Valve Structurally normal tricuspid valve. Mild tricuspid regurgitation. Pulmonic Valve Trace pulmonic regurgitation. Pericardium No pericardial effusion. Aorta Normal size aortic root and proximal ascending aorta. CONCLUSIONS Normal LV systolic function Aortic sclerosis with mild to moderate aortic stenosis. [id number] mitral regurgitation Previewed by: Dr. Rupesh Sparks MD (Electronically Signed) Final Date: 03 March 2023 12:19
--- NOTE | 2023-03-03 13:32 | P.PN ---
Subjective Progress Note Date: 03/03/23 PROGRESS NOTE The patient is a 77-year-old female who presented with symptoms of palpitations and dyspnea, was noted to be in atrial fibrillation, she is back in sinus mechanism. She's feeling well, ambulating without difficulties. She denies any chest discomfort, dizziness or syncope. She had an echocardiogram that showed an ejection fraction of 55-60% with mild to moderate mitral and mild tricuspid regurgitation with mild aortic stenosis Medications: Lipitor 10 mg daily, Lopressor 50 mg 3 times a day, losartan 100 mg daily, Cordarone 400 mg twice a day,Eliquis 5 mg twice a day PHYSICAL EXAMINATION: Blood pressure 122/60 heart rate 80 LUNGS: Clear to auscultation HEART: Regular rate and rhythm, S1, S2. No S3. Systolic ejection murmur ABDOMEN: Soft, nontender, no organomegaly EXTREMETIES: No edema LAB: Potassium 4.7, BUN 18, creatinine 0.68 IMPRESSION: 1. Paroxysmal atrial fibrillation, back in sinus mechanism 2. Hypertension 3. Hyperlipidemia 4. Mild to moderate mitral regurgitation PLAN: 1. Increase physical activity 2. Decrease Lopressor to 50 mg twice a day 3. Taper amiodarone per protocol 4. Probable discharged home today Objective - Vital Signs Vital signs: Vital Signs Temp 98.5 F 03/03/23 08:45 Pulse 85 03/03/23 08:45 Resp 16 03/03/23 08:45 BP 122/61 03/03/23 08:45 Pulse Ox 95 03/03/23 08:45 FiO2 Intake & Output 03/02/23 03/03/23 03/03/23 18:59 06:59 18:59 Intake Total 726 250 Balance 726 250 Weight 85.8 kg Intake: IV 10 10 Invasive Line 2 10 10 Oral 716 240 Other: Voiding Method Toilet Toilet Toilet # Voids 3 1 # Bowel Movements 1 - Labs CBC & Chem 7: 03/03/23 08:30 03/03/23 08:30 Labs: Abnormal Lab Results - Last 24 Hours (Table) 03/03/23 Range/Units 08:30 BUN 18 H (7-17) mg/dL Glucose 125 H (74-99) mg/dL ALT 35 H (4-34) U/L
== END 2023-03-03 11:41 | disposition home or self-care (01) | DRG 310 ==
LOC: EC 09:56 → 3SCARD 12:11
PROVIDERS: ADMIT Internal Medicine; ATTEND Internal Medicine
DX: I48.0 Paroxysmal atrial fibrillation (principal); I34.0 Nonrheumatic mitral (valve) insufficiency; K21.9 Gastro-esophageal reflux disease without esophagitis; E78.5 Hyperlipidemia, unspecified; I10 Essential (primary) hypertension; Z79.899 Other long term (current) drug therapy; Z80.3 Family history of malignant neoplasm of breast; Z80.7 Family history of other malignant neoplasms of lymphoid, hematopoietic and related tissues; Z85.3 Personal history of malignant neoplasm of breast; Z88.5 Allergy status to narcotic agent
CPT/HCPCS: 36415; 71046; 80048; 80053; 83735; 84443; 84484; 85025; 85049; 85610; 85730; 93005; 93306; 96365; 96375; 96376; 99291

== ENCOUNTER → 2023-03-22 | Outpatient (CLI) | payer MEDICARE, OTHER ==
--- NOTE | 2023-03-22 14:37 | MM ---
Reason for Exam: Additional evaluation requested from prior study. Last mammogram was performed 1 year(s) and 1 month(s) ago. Patient History: Menarche at age 12. First Full-Term at age 17. Postmenopausal. Patient has history of breast feeding. Breast cancer, left, age 73. Estrogen for 4 years from age 52 until age 56. Progesterone for 4 years from age 52 until age 56. 04/02/2019, Lumpectomy on the Left side. 1989, Benign Excisional Biopsy on the left side. 04/02/2019, Malignant Core Biopsy on the left side. 01/10/2019, Malignant Core Biopsy on the left side. Mother had breast cancer, age 85. Prior Study Comparison: 01/14/2013 Bilateral Screening Mammogram, [facility]. 01/16/2013 Right Diagnostic Mammogram, [facility]. 03/06/2014 Bilateral Screening Mammogram, [facility]. 03/25/2015 Bilateral Screening Mammogram, [facility]. 05/19/2016 Bilateral Screening Mammogram, [facility]. 06/27/2017 Bilateral Screening Mammogram, [facility]. 11/28/2018 Bilateral Screening Mammogram, [facility]. 12/06/2018 Left Diagnostic Mammogram, [facility]. 02/20/2020 Bilateral Diagnostic Mammogram, [facility]. 02/23/2021 Bilateral Diagnostic Mammogram, [facility]. 02/25/2022 Bilateral MG 3D diag mammo w/cad [facility]ATH[facility], [facility]. Tissue Density: There are scattered fibroglandular densities. Findings: Analyzed By CAD. Pattern appears stable. Benign coarse calcifications within the right breast. Surgical clips are within the left breast. Benign vascular calcifications present bilaterally. No suspicious groups of microcalcifications, spiculated or lobular masses, architectural distortion or other secondary signs of malignancy are mammographically apparent. Overall Assessment: Benign, BI-RAD 2 Management: Diagnostic Mammogram of both breasts in 1 year. A negative mammogram report should not preclude additional follow up of suspicious palpable abnormalities. Patient should continue monthly self breast exam. A clinical breast exam by your physician is recommended on an annual basis and results should be correlated with mammographic findings. Electronically signed and approved by: Saqib Kiser D.O. Radiologis
== END | disposition home or self-care (01) ==
LOC: RADMAMWWP 12:59
PROVIDERS: ATTEND Surgery
DX: R92.8 Other abnormal and inconclusive findings on diagnostic imaging of breast (principal); Z85.3 Personal history of malignant neoplasm of breast; Z78.0 Asymptomatic menopausal state; Z80.3 Family history of malignant neoplasm of breast
CPT/HCPCS: 77066; G0279; 77062

== ENCOUNTER 2023-05-06 09:33 | Emergency (ER) | payer MEDICARE, OTHER ==
[2023-05-06] MEDS ORDERED: hydrALAZINE HCL 20 MG/ML 1 ML VIAL IVP STA (10:05)
--- NOTE | 2023-05-06 10:07 | ED ---
General Adult HPI - General Chief complaint: Recheck/Abnormal Lab/Rx Stated complaint: HTN Time Seen by Provider: 05/06/23 09:55 Source: patient, RN notes reviewed, old records reviewed Mode of arrival: ambulatory Limitations: no limitations - History of Present Illness Initial comments: This a 77-year-old female presents emergency Department complaining that she woke up on Monday and throughout the day Monday her up blood pressure was high sometimes with a systolic blood pressure over 200. Patient states she's never had that before. Patient states she woke up today and was again very high she took her metoprolol about an hour and 15 minutes prior to arrival. Patient states she has had no symptoms. Patient denies headache patient denies any numbness weakness. Patient denies any chest pain difficulty breathing first breath per patient denies any blurred vision. Patient denies any back pain. Patient denies abdominal pain. Patient states she has had an upper respiratory infection the last Monday she was diagnosed with cold - Related Data Home Medications Medication Instructions Recorded Confirmed Atorvastatin [Lipitor] 10 mg PO HS 03/17/15 02/28/23 Calcium Carbonate/Vitamin D3 1 tab PO HS 12/25/18 02/28/23 [Caltrate 600 Plus D3 20 Mcg (800 Iu)] Multivit-Min/FA/Lycopen/Lutein 1 tab PO QAM 12/25/18 02/28/23 [Centrum Silver Tablet] Exemestane [Aromasin] 25 mg PO QAM 08/14/19 02/28/23 Previous Rx's Medication Instructions Recorded Amiodarone [Cordarone] 400 mg PO BID #90 tab 03/03/23 Apixaban [Eliquis] 5 mg PO BID #180 tab 03/03/23 Losartan [Cozaar] 100 mg PO QAM 30 Days #30 tab 03/03/23 Metoprolol Tartrate [Lopressor] 50 mg PO TID #270 tab 03/03/23 Allergies Allergy/AdvReac Type Severity Reaction Status Date / Time codeine AdvReac "groggy" Verified 05/06/23 09:48 Review of Systems ROS Statement: Those systems with pertinent positive or pertinent negative responses have been documented in the HPI. ROS Other: All systems not noted in ROS Statement are negative. Past Medical History Past Medical History: Cancer, GERD/Reflux, Hyperlipidemia, Hypertension Additional Past Medical History / Comment(s): BULDGING DISC LOWER BACK, VARICOSE VEINS, LEFT BREAST CANCER .COIVD 07/23 and 04/24 History of Any Multi-Drug Resistant Organisms: None Reported Past Surgical History: Breast Surgery, Orthopedic Surgery, Tonsillectomy, Tubal Ligation Additional Past Surgical History / Comment(s): rt foot surgery, left breast bx. , Left Breast Lumpectomy (30 yrs ago) Past Anesthesia/Blood Transfusion Reactions: Previous Problems w/ Anesthesia Additional Past Anesthesia/Blood Transfusion Reaction / Comment(s): diff waking up Past Psychological History: No Psychological Hx Reported Smoking Status: Never smoker Past Alcohol Use History: Occasional Past Drug Use History: None Reported - Past Family History Father Additional Family Medical History / Comment(s): of lymphoma Mother Family Medical History: Cancer Additional Family Medical History / Comment(s): Breast cancer General Exam - General Exam Comments Initial Comments: GENERAL: Patient is well-developed and well-nourished. Patient is nontoxic and well- hydrated and is in no acute distress. ENT: Neck is soft and supple. No significant lymphadenopathy is noted. Oropharynx is clear. Moist mucous membranes. Neck has full range of motion without eliciting any pain. EYES: The sclera were anicteric and conjunctiva were pink and moist. Extraocular movements were intact and pupils were equal round and reactive to light. Eyelids were unremarkable. PULMONARY: Unlabored respirations. Good breath sounds bilaterally. No audible rales rhonchi or wheezing was noted. CARDIOVASCULAR: There is a regular rate and rhythm without any murmurs gallops or rubs. ABDOMEN: Soft and nontender with normal bowel sounds. SKIN: Skin is clear with no lesions or rashes and otherwise unremarkable. NEUROLOGIC: Patient is alert and oriented x3. Cranial nerves II through XII are grossly intact. Motor and sensory are also intact. Normal speech, volume and content. Symmetrical smile. MUSCULOSKELETAL: Normal extremities with adequate strength and full range of motion. LYMPHATICS: No significant lymphadenopathy is noted PSYCHIATRIC: Normal psychiatric evaluation. Limitations: no limitations Course Vital Signs 05/06/23 05/06/23 05/06/23 09:43 10:13 10:54 Temperature 98.5 F Pulse Rate 66 60 62 Respiratory 22 18 18 Rate Blood Pressure 210/96 174/95 134/74 O2 Sat by Pulse 94 L 96 98 Oximetry Medical Decision Making - Medical Decision Making EKG is interpreted by myself. EKG shows a sinus rhythm at 63 bpm GA interval 203 QRS is 90 QT interval 421 QTC is 428. Patient's EKG shows no ST segment elevation or depression. Was pt. sent in by a medical professional or institution (SUZI Shukla, FORMAL WAITER/WAITRESS, urgent care, hospital, or long term...) When possible be specific @ -No Did you speak to anyone other than the patient for history (EMS, parent, family, police, friend...)? What history was obtained from this source @ -No Did you review nursing and triage notes (agree or disagree)? Why? @ -I reviewed and agree with nursing and triage notes Were old charts reviewed (outside hosp., previous admission, EMS record, old EKG, old radiological studies, urgent care reports/EKG's, long term records)? Report findings @ -I reviewed old charts and old lab work on this patient Differential Diagnosis (chest pain, altered mental status, abdominal pain women, abdominal pain men, vaginal bleeding, weakness, fever, dyspnea, syncope, headache, dizziness, GI bleed, back pain, seizure, CVA, palpatations, mental health, musculoskeletal)? @ -Hypertensive urgency, hypertensive emergency, hyperthyroidism, pheochromocytoma, this is not all inclusive list EKG interpreted by me (3pts min.). @ -As above X-rays interpreted by me (1pt min.). @ -None done CT interpreted by me (1pt min.). @ -None done U/S interpreted by me (1pt. min.). @ -None done What testing was considered but not performed or refused? (CT, X-rays, U/S, labs)? Why? @ -None What meds were considered but not given or refused? Why? @ -None Did you discuss the management of the patient with other professionals (professionals i.e. SUZI Shukla, FORMAL WAITER/WAITRESS, lab, RT, psych nurse, social sciences instructor, white washer piler, teacher, logistics supply officer, watch case polisher)? Give summary @ -No Was smoking cessation discussed for >3mins.? @ -No Was critical care preformed (if so, how long)? @ -No Were there social determinants of health that impacted care today? How? (Homelessness, low income, unemployed, alcoholism, drug addiction, transportation, low edu. Level, literacy, decrease access to med. care, penitentiary, rehab)? @ -No Was there de-escalation of care discussed even if they declined (Discuss DNR or withdrawal of care, Hospice)? DNR status @ -No What co-morbidities impacted this encounter? (DM, HTN, Smoking, COPD, CAD, Cancer, CVA, ARF, Chemo, Hep., AIDS, mental health diagnosis, sleep apnea, morbid obesity)? @ -None Was patient admitted / discharged? Hospital course, mention meds given and route, prescriptions, significant lab abnormalities, going to OR and other pertinent info. @ -Patient was given 10 of hydralazine blood pressure came down to 130/86 patient had no symptoms throughout her ED stay. Patient will be instructed to follow-up with rotary dryer operator on Monday as previously scheduled and she will add 25 of metoprolol at night before bed Undiagnosed new problem with uncertain prognosis? @ -No Drug Therapy requiring intensive monitoring for toxicity (Heparin, Nitro, Insulin, Cardizem)? @ -No Were any procedures done? @ -No Diagnosis/symptom? @ -Hypertensive urgency Acute, or Chronic, or Acute on Chronic? @ -Acute Uncomplicated (without systemic symptoms) or Complicated (systemic symptoms)? @ -Complicated Side effects of treatment? @ -No Exacerbation, Progression, or Severe Exacerbation? @ -No Poses a threat to life or bodily function? How? (Chest pain, USA, ID, pneumonia, PE, COPD, DKA, ARF, appy, cholecystitis, CVA, Diverticulitis, Homicidal, Suicidal, threat to staff... and all critical care pts) @ -No - Lab Data Result diagrams: 05/06/23 10:11 05/06/23 10:11 Lab Results 05/06/23 05/06/23 05/06/23 Range/Units 10:11 10:11 10:11 WBC 5.3 (3.8-10.6) k/uL RBC 4.97 (3.80-5.40) m/uL Hgb 14.9 (11.4-16.0) gm/dL Hct 45.6 (34.0-46.0) % MCV 91.8 (80.0-100.0) fL MCH 30.0 (25.0-35.0) pg MCHC 32.7 (31.0-37.0) g/dL RDW 13.2 (11.5-15.5) % Plt Count 230 (150-450) k/uL MPV 7.9 Neutrophils % 64 % Lymphocytes % 25 % Monocytes % 5 % Eosinophils % 3 % Basophils % 1 % Neutrophils # 3.4 (1.3-7.7) k/uL Lymphocytes # 1.3 (1.0-4.8) k/uL Monocytes # 0.3 (0-1.0) k/uL Eosinophils # 0.2 (0-0.7) k/uL Basophils # 0.1 (0-0.2) k/uL Sodium 140 (137-145) mmol/L Potassium 4.4 (3.5-5.1) mmol/L Chloride 105 (98-107) mmol/L Carbon Dioxide 25 (22-30) mmol/L Anion Gap 10 mmol/L BUN 19 H (7-17) mg/dL Creatinine 0.68 (0.52-1.04) mg/dL Est GFR (CKD-EPI)AfAm >90 (>60 ml/min/1.73 sqM) Est GFR (CKD-EPI)NonAf 84 (>60 ml/min/1.73 sqM) Glucose 109 H (74-99) mg/dL Calcium 9.6 (8.4-10.2) mg/dL Magnesium 2.1 (1.6-2.3) mg/dL Total Bilirubin 0.7 (0.2-1.3) mg/dL AST 34 (14-36) U/L ALT 44 H (4-34) U/L Alkaline Phosphatase 73 (38-126) U/L Troponin I <0.012 (0.000-0.034) ng/mL Total Protein 7.1 (6.3-8.2) g/dL Albumin 4.0 (3.5-5.0) g/dL Disposition Clinical Impression: Hypertensive urgency Disposition: HOME SELF-CARE Condition: Good Instructions (If sedation given, give patient instructions): Hypertension (ED) Additional Instructions: Patient should take 25 mg metoprolol at night as well as the 50 in the morning. Patient should try to make this approximately 12 hours apart Is patient prescribed a controlled substance at d/c from ED?: No Referrals: Gregory Anguiano MD [Primary Care Provider] - 1-2 days Time of Disposition: 11:15
[2023-05-06 10:09] VITALS: TEMP 98.5
[2023-05-06 10:21] LABS: Basophils # (A) 0.1 k/uL (0-0.2); Basophils % (A) 1 %; Eosinophils # (A) 0.2 k/uL (0-0.7); Eosinophils % (A) 3 %; HCT 45.6 % (34.0-46.0); HGB 14.9 gm/dL (11.4-16.0); Lymphocytes # (A) 1.3 k/uL (1.0-4.8); Lymphocytes % (A) 25 %; MCHC 32.7 g/dL (31.0-37.0); MCV 91.8 fL (80.0-100.0); Mean Platelet Volume 7.9; Monocytes # (A) 0.3 k/uL (0-1.0); Monocytes % (A) 5 %; Neutrophils # (A) 3.4 k/uL (1.3-7.7); Neutrophils % (A) 64 %; Platelet Count 230 k/uL (150-450); RBC 4.97 m/uL (3.80-5.40); RDW 13.2 % (11.5-15.5); WBC 5.3 k/uL (3.8-10.6)
[2023-05-06 10:31] VITALS: RESP 18
[2023-05-06 10:39] LABS: ALT 44 U/L (4-34); AST 34 U/L (14-36); African American GFR (CKD) >90 (>60 ml/min/1.73 sqM); Alkaline Phosphatase 73 U/L (38-126); Anion Gap 10 mmol/L; Blood Urea Nitrogen 19 mg/dL (7-17); Calcium 9.6 mg/dL (8.4-10.2); Carbon Dioxide 25 mmol/L (22-30); Chloride 105 mmol/L (98-107); Glucose 109 mg/dL (74-99); Magnesium 2.1 mg/dL (1.6-2.3); Non-African American GFR(CKD) 84 (>60 ml/min/1.73 sqM); Potassium 4.4 mmol/L (3.5-5.1); Sodium 140 mmol/L (137-145); Total Bilirubin 0.7 mg/dL (0.2-1.3); Total Protein 7.1 g/dL (6.3-8.2)
[2023-05-06 11:37] VITALS: BP 152/83; PULSE 64
== END 2023-05-06 11:52 | disposition home or self-care (01) ==
LOC: EC 09:33
DX: I16.0 Hypertensive urgency (principal); E78.5 Hyperlipidemia, unspecified; I10 Essential (primary) hypertension; Z88.5 Allergy status to narcotic agent; Z79.899 Other long term (current) drug therapy
CPT/HCPCS: 36415; 93005; 80053; 83735; 84484; 85025; 99284; 96374; J0360

== ENCOUNTER → 2023-05-12 | Outpatient (CLI) | payer MEDICARE, OTHER ==
--- NOTE | 2023-05-12 10:23 | P.PN ---
Subjective Progress Note Date: 05/12/23 Principal diagnosis: DCIS left breast left breast DCIS DX. 2019 The patient is a 77 year old white female who presented on 12-14-18 with a complaint of an abnormal mammogram showing some microcalcifications of concern in the left breast. This was done on 11-28-18, and a diagnostic mammogram was on 12-06-18. The patient did not feel anything in her breast. No nipple discharge, or skin changes. The nipples had been inverted for many years. There was no history of any trauma or infection in the breast. She underwent a stero biopsy of the left breast on 01-10-19 which showed low grade DCIS. She than underwent a lumpectomy on 04-02-19 which showed focal lobular carcinoma insitu but no residual DCIS. This was ER/Pr+. She did not have radiation therapy. She is taking an estrogen blocking agent, exemestane (Aromasin) as per medical oncology. She had a bilateral mammogram 03-22-23 this was benign BIRADS 2. She is not complaining of any lumps masses or nodules in the past. She is not complaining of any abnormal nipple discharge or skin changes. She is continuing to take the Aromasin. The patient is complaining of tender spot on her left breast after she was seen in the ER and EKG pads were placed last week. She was recently diagnosed with AFIB and HTN. She is taking Eliquis. He has also recently been started on amiodarone, losartan, metipranolol, and hydrochlorothiazide. Dr. Reyes Chaparro [id number] reviewed; continue Aromasin 25 mg by mouth daily for 5 years; through 2023. Her next appointment with medical oncology as scheduled for June 2023. Family History: 1. mother: breast at 86 2. father: lymphoma Hormonal History: menarche: 12 , breast fed: yes, first born at 18 menopause: 48 BCP: 1 year hormones: none Past Surgical History: 1. breast biopsy on the left 2. tubal 3. toe surgery Past Medical History: 1. HTN 2. high cholesterol Social History: smoke: none alcohol: twice a week drugs: none - Constitutional Constitutional: Denies chills, Denies fever - EENT Comment: sensitive to light, bilateral blephroplasty Eyes: denies blurred vision, denies pain Ears: bilateral: tinnitus - Breasts Breasts: bilateral: as per HPI - Cardiovascular Cardiovascular: Reports high blood pressure - Respiratory Respiratory: Denies cough - Gastrointestinal Gastrointestinal: Denies abdominal pain, Denies diarrhea, Denies nausea, Denies vomiting - Genitourinary (Female) Genitourinary: Denies dysuria, Denies hematuria - Menstruation Menstruation: Reports postmenopausal - Musculoskeletal Comment: arthritis - Integumentary Integumentary: Denies pruritus, Denies rash - Neurological Neurological: Denies numbness, Denies weakness - Psychiatric Psychiatric: Denies anxiety, Denies depression - Endocrine Endocrine: Denies fatigue, Denies weight change - Hematologic/Lymphatic Comment: none - Allergic/Immunologic: codiene Objective - Constitutional General appearance: Present: cooperative - EENT Eyes: Present: EOMI ENT: Present: hearing grossly normal - Neck Neck: Present: normal ROM - Respiratory Respiratory: bilateral: CTA - Cardiovascular Rhythm: regular Heart sounds: normal: S1, S2 - Gastrointestinal General gastrointestinal: Present: soft - Integumentary Integumentary: Present: normal turgor - Musculoskeletal Musculoskeletal: Present: gait normal - Psychiatric Psychiatric: Present: A&O x's 3, appropriate affect, intact judgment & insight - Additional findings Additional findings: Breast Exam: BRA: 40D inspection: bilateral grade 3 ptosis; fungal infection under right breast palpation: right breast: Multi-positional exam fibrocystic changes no dominant masses or nodules of concern Right axilla: No adenopathy of concern Left breast: Multi-positional exam fibrocystic changes no dominant masses or nodules of concern Left axilla: No adenopathy of concern Assessment and Plan Assessment: Impression: Left breast DCIS status post resection 2018 no radiation therapy the patient is on Aromasin; no evidence of recurrence Fungal infection under right breast Plan: Nystatin Repeat bilateral mammogram March 2024 follow up in 6 months Continue to follow with medical oncology Continue Aromasin CC: Dr. Anguiano
[2023-05-12 11:16] VITALS: BP 143/78; PULSE 68; RESP 17; TEMP 98.3
== END ==
LOC: WWCWWP 09:26
PROVIDERS: ATTEND Surgery
DX: D05.12 Intraductal carcinoma in situ of left breast (principal); E78.00 Pure hypercholesterolemia, unspecified; I10 Essential (primary) hypertension; I48.91 Unspecified atrial fibrillation; N64.59 Other signs and symptoms in breast; B37.89 Other sites of candidiasis; Z79.01 Long term (current) use of anticoagulants; Z80.3 Family history of malignant neoplasm of breast; Z88.5 Allergy status to narcotic agent; Z79.899 Other long term (current) drug therapy

== ENCOUNTER → 2023-06-15 | Outpatient (CLI) | payer MEDICARE, OTHER ==
[2023-06-15 15:39] LABS: ALT 41 U/L (8-44); AST 26 U/L (13-35); Albumin 4.1 g/dL (3.8-4.9); Albumin/Globulin Ratio 1.58 Ratio (1.60-3.17); Alkaline Phosphatase 84 U/L (41-126); Calcium 9.8 mg/dL (8.7-10.3); Chloride 104 mmol/L (96-109); Chol/HDL Ratio 2.77 Ratio; Globulin 2.6 g/dL (1.6-3.3); Glucose 129 mg/dL (70-110); LDL Cholesterol,Calculated 87.8 mg/dL (0.0-131.0); Potassium 4.3 mmol/L (3.5-5.5); Sodium 141 mmol/L (135-145); Total Bilirubin 0.5 mg/dL (0.3-1.2); Total Protein 6.7 g/dL (6.2-8.2); VLDL Calculation 15.04 mg/dL (5.00-40.00)
== END | disposition home or self-care (01) ==
LOC: LABWHC1 08:47
PROVIDERS: ATTEND Internal Medicine Interventional Cardiology
DX: I48.0 Paroxysmal atrial fibrillation (principal); E78.2 Mixed hyperlipidemia
CPT/HCPCS: 36415; 80053; 80061; 84443

== ENCOUNTER → 2023-11-03 | Outpatient (CLI) | payer MEDICARE, OTHER ==
--- NOTE | 2023-11-06 11:55 | BD ---
EXAMINATION TYPE: Axial Bone Density DATE OF EXAM: 11/03/2023 CLINICAL HISTORY: 78 years old Female. ICD-10 CODE: M8588, D0512 AP SPINE Height: 62.2 in Weight: 185 lbs FRAX RISK QUESTIONS: History of Fracture in Adulthood: rt hand age 68; rt foot age 66; lt foot fx age 68 MEDICATIONS: Osteoporosis Medications: not now Which medication: Fosamax How Lon years EXAM MEASUREMENTS: Bone mineral densitometry was performed using the [employer] System. Bone mineral density as measured about the Lumbar spine is: ----- L1-L4(G/cm2): 1.174 T Score Values are as follows: ----- L1: -1.3 ----- L2: -0.9 ----- L3: -0.4 ----- L4: 1.1 ----- L1-L4: -1.1 Z Score Values are as follows: ----- L1: -0.1 ----- L2: 0.4 ----- L3: 0.8 ----- L4: 2.3 ----- L1-L4: 1.2 Bone mineral density has: Decreased -1.3% since study of: 06/02/2021 Bone mineral density about the R hip (g/cm2): 0.947 Bone mineral density about the L hip (g/cm2): 0.943 T Score values are as follows: -----R Neck: -1.4 -----L Neck: -1.2 -----R Total: -0.5 -----L Total: -0.5 Z Score values are as follows: -----R Neck: 0.3 -----L Neck: 0.5 -----R Total: 1.1 -----L Total: 1.1 Bone mineral density has: Decreased -1.2% since study of: 06/02/2021 FRAX%s: The graph provided illustrates a 18.0% chance for a major osteoporotic fx and a 3.7% chance f or the hips probability for fx in 10 years time. IMPRESSION: Osteopenia (T Score between -2.5 and -1). There is slightly increased risk of fracture and the patient may be considered for treatment. Re-Screen 2-5 years. NOTE: T-SCORE=SD OF THE YOUNG ADULT MEAN.
== END | disposition home or self-care (01) ==
LOC: RADBDWWP 12:36
PROVIDERS: ATTEND Internal Medicine Hematology & Oncology
DX: M85.89 Other specified disorders of bone density and structure, multiple sites (principal); D05.12 Intraductal carcinoma in situ of left breast; I10 Essential (primary) hypertension; E78.5 Hyperlipidemia, unspecified; Z71.3 Dietary counseling and surveillance
CPT/HCPCS: 77080

== ENCOUNTER → 2023-11-03 | Outpatient (CLI) | payer MEDICARE, OTHER ==
--- NOTE | 2023-11-03 13:43 | P.PN ---
Subjective Progress Note Date: 11/03/23 05/12/23 Principal diagnosis: DCIS left breast left breast DCIS DX. 2019 The patient is a 78 year old white female who presented on 12-14-18 with a complaint of an abnormal mammogram showing some microcalcifications of concern in the left breast. This was done on 11-28-18, and a diagnostic mammogram was on 12-06-18. The patient did not feel anything in her breast. No nipple discharge, or skin changes. The nipples had been inverted for many years. There was no history of any trauma or infection in the breast. She underwent a stero biopsy of the left breast on 01-10-19 which showed low grade DCIS. She than underwent a lumpectomy on 04-02-19 which showed focal lobular carcinoma insitu but no residual DCIS. This was ER/Pr+. She did not have radiation therapy. She is taking an estrogen blocking agent, exemestane (Aromasin) as per medical oncology. She had a bilateral mammogram 03-22-23 this was benign BIRADS 2. She is not complaining of any lumps masses or nodules in the past. She is not complaining of any abnormal nipple discharge or skin changes. She is continuing to take the Aromasin. The patient is complaining of tender spot on her left breast after she was seen in the ER and EKG pads were placed last week. She was recently diagnosed with AFIB and HTN. She is taking Eliquis. He has also recently been started on amiodarone, losartan, metoprolol, and hydrochlorothiazide. Review note Medical Oncology 06-20-23; continue aromisin at this time follow up in December 2023 last mammogram 03-22-23 BIRAD 2 She is not complaining of any new lumps masses or nodules of concern in either breast. She is having a bone density performed today. Family History: 1. mother: breast at 86 2. father: lymphoma Hormonal History: menarche: 12 , breast fed: yes, first born at 18 menopause: 48 BCP: 1 year hormones: none Past Surgical History: 1. breast biopsy on the left 2. tubal 3. toe surgery Past Medical History: 1. HTN 2. high cholesterol Social History: smoke: none alcohol: twice a week drugs: none - Constitutional Constitutional: Denies chills, Denies fever - EENT Comment: sensitive to light, bilateral blephroplasty Eyes: denies blurred vision, denies pain Ears: bilateral: tinnitus - Breasts Breasts: bilateral: as per HPI - Cardiovascular Cardiovascular: Reports high blood pressure - Respiratory Respiratory: Denies cough - Gastrointestinal Gastrointestinal: Denies abdominal pain, Denies diarrhea, Denies nausea, Denies vomiting - Genitourinary (Female) Genitourinary: Denies dysuria, Denies hematuria - Menstruation Menstruation: Reports postmenopausal - Musculoskeletal Comment: arthritis - Integumentary Integumentary: Denies pruritus, Denies rash - Neurological Neurological: Denies numbness, Denies weakness - Psychiatric Psychiatric: Denies anxiety, Denies depression - Endocrine Endocrine: Denies fatigue, Denies weight change - Hematologic/Lymphatic Comment: none - Allergic/Immunologic: codiene Objective - Vital Signs Vital signs: Vital Signs Temp 97.8 F 11/03/23 13:23 Pulse 77 11/03/23 13:23 Resp 17 11/03/23 13:23 BP 155/84 11/03/23 13:23 Pulse Ox 97 11/03/23 13:23 FiO2 Intake & Output 11/02/23 11/03/23 11/03/23 18:59 06:59 18:59 Weight 81.647 kg - Constitutional General appearance: Present: cooperative - EENT Eyes: Present: EOMI ENT: Present: hearing grossly normal - Neck Neck: Present: normal ROM - Respiratory Respiratory: bilateral: CTA - Cardiovascular Rhythm: regular Heart sounds: normal: S1, S2 - Gastrointestinal General gastrointestinal: Present: soft - Integumentary Integumentary: Present: normal turgor - Musculoskeletal Musculoskeletal: Present: gait normal - Psychiatric Psychiatric: Present: A&O x's 3, appropriate affect, intact judgment & insight - Additional findings Additional findings: Breast Exam: BRA: 40D inspection: bilateral grade 3 ptosis; palpation: right breast: Multi-positional exam fibrocystic changes no dominant masses or nodules of concern Right axilla: No adenopathy of concern Left breast: Multi-positional exam fibrocystic changes no dominant masses or nodules of concern, well healed scar from lumpectomy Left axilla: No adenopathy of concern Assessment and Plan Assessment: Impression: Left breast DCIS status post resection 2018 no radiation therapy the patient is on Aromasin; no evidence of recurrence Plan: Repeat bilateral mammogram March 2024 follow up in 6 months Continue to follow with medical oncology Zoie Justice CC: Dr. Anguiano
[2023-11-03 14:01] VITALS: BP 155/84; PULSE 77; RESP 17; TEMP 97.8
== END ==
LOC: WWCWWP 12:34
PROVIDERS: ATTEND Surgery
DX: R92.8 Other abnormal and inconclusive findings on diagnostic imaging of breast (principal); R92.1 Mammographic calcification found on diagnostic imaging of breast; D05.12 Intraductal carcinoma in situ of left breast; R92.323 Mammographic fibroglandular density, bilateral breasts; N64.59 Other signs and symptoms in breast; I10 Essential (primary) hypertension; I48.91 Unspecified atrial fibrillation; Z79.01 Long term (current) use of anticoagulants; Z88.5 Allergy status to narcotic agent; Z79.899 Other long term (current) drug therapy

== ENCOUNTER → 2024-03-25 | Outpatient (CLI) | payer MEDICARE, OTHER ==
--- NOTE | 2024-04-01 14:40 | MM ---
Reason for Exam: Hx of breast cancer, conservation therapy. Last screening mammogram was performed 12 month(s) ago. Patient History: Menarche at age 12. First Full-Term at age 17. Postmenopausal. Patient has history of breast feeding. Breast cancer, left, age 73. Estrogen for 4 years from age 52 until age 56. Progesterone for 4 years from age 52 until age 56. 04/02/2019, Lumpectomy on the Left side. 1989, Benign Excisional Biopsy on the left side. 04/02/2019, Malignant Core Biopsy on the left side. 01/10/2019, Malignant Core Biopsy on the left side. Mother had breast cancer, age 85. Prior Study Comparison: 02/20/2020 Bilateral Diagnostic Mammogram, [facility]. 02/23/2021 Bilateral Diagnostic Mammogram, [facility]. 02/25/2022 Bilateral MG 3D diag mammo w/cad [facility], [facility]. 03/22/2023 Bilateral MG 3D diag mammo w/cad [facility]ATH[facility], [facility]. Tissue Density: There are scattered areas of fibroglandular density. Findings: Analyzed By CAD. The pattern is symmetrical. Surgical clips are within the upper outer left breast. Benign vascular calcifications bilaterally. No significant interval changes are evident. No suspicious groups of microcalcifications, spiculated or lobular masses, architectural distortion or other secondary signs of malignancy are mammographically apparent. Overall Assessment: Benign, BI-RAD 2 Management: Screening Mammogram of both breasts in 1 year. A negative mammogram report should not preclude additional follow up of suspicious palpable abnormalities. Patient should continue monthly self breast exam. A clinical breast exam by your physician is recommended on an annual basis and results should be correlated with mammographic findings. Note on Munira scores and lifetime risk: 1. A Munira score greater than 3% is considered moderate risk. If this is the case, consider specialist referral to assess eligibility for a risk reducing agent. 2. If overall lifetime risk for the development of breast cancer is 20% or higher, the patient may qualify for future screening with alternating mammogram and breast MRI. [facility], , 03/25/2024 2:38 PM. Electronically signed and approved by: Saqib Kiser D.O. Radiologis
== END | disposition home or self-care (01) ==
LOC: RADMAMWWP 13:58
PROVIDERS: ATTEND Surgery
DX: Z85.3 Personal history of malignant neoplasm of breast
CPT/HCPCS: 77062; 77066

== ENCOUNTER → 2024-05-09 | Outpatient (CLI) | payer MEDICARE, OTHER ==
[2024-05-09 10:12] VITALS: BP 187/84; PULSE 80; RESP 17; TEMP 97.9
--- NOTE | 2024-05-09 10:17 | P.PN ---
Subjective Progress Note Date: 05/09/24 05-09-24 Principal diagnosis: DCIS left breast left breast DCIS DX. 2019 The patient is a 78 year old white female who presented on 12-14-18 with a complaint of an abnormal mammogram showing some microcalcifications of concern in the left breast. This was done on 11-28-18, and a diagnostic mammogram was on 12-06-18. The patient did not feel anything in her breast. No nipple discharge, or skin changes. The nipples had been inverted for many years. There was no history of any trauma or infection in the breast. She underwent a stero biopsy of the left breast on 01-10-19 which showed low grade DCIS. She than underwent a lumpectomy on 04-02-19 which showed focal lobular carcinoma insitu but no residual DCIS. This was ER/Pr+. She did not have radiation therapy. She is taking an estrogen blocking agent, exemestane (Aromasin) as per medical oncology. She had a bilateral mammogram 03-25-24 this was benign BIRADS 2, this was personally interpreted. She is not complaining of any lumps masses or nodules in the breast. She is not complaining of any abnormal nipple discharge or skin changes. She is continuing to take the Aromasin. The patient n her last visit was complaining of tender spot on her left breast after she was seen in the ER and EKG pads were placed last week. She was recently diagnosed with AFIB and HTN. She is taking Eliquis. She has also recently been started on amiodarone, losartan, metoprolol, and hydrochlorothiazide. This has resolved. Review note Medical Oncology 06-20-23 on last visit ; was seen by medical oncology in January on 2023; told that she could stop her Aromasin as it had been 5 years. She is going to stop this when she finishes her prescription about 28 days last mammogram 03-25-24 BIRAD 2 She is not complaining of any new lumps masses or nodules of concern in either breast. She is having a bone density performed today. Family History: 1. mother: breast at 86 2. father: lymphoma Hormonal History: menarche: 12 , breast fed: yes, first born at 18 menopause: 48 BCP: 1 year hormones: none Past Surgical History: 1. breast biopsy on the left 2. tubal 3. toe surgery Past Medical History: 1. HTN 2. high cholesterol Social History: smoke: none alcohol: twice a week drugs: none - Constitutional Constitutional: Denies chills, Denies fever - EENT Comment: sensitive to light, bilateral blephroplasty Eyes: denies blurred vision, denies pain Ears: bilateral: tinnitus - Breasts Breasts: bilateral: as per HPI - Cardiovascular Cardiovascular: Reports high blood pressure - Respiratory Respiratory: Denies cough - Gastrointestinal Gastrointestinal: Denies abdominal pain, Denies diarrhea, Denies nausea, Denies vomiting - Genitourinary (Female) Genitourinary: Denies dysuria, Denies hematuria - Menstruation Menstruation: Reports postmenopausal - Musculoskeletal Comment: arthritis - Integumentary Integumentary: Denies pruritus, Denies rash - Neurological Neurological: Denies numbness, Denies weakness - Psychiatric Psychiatric: Denies anxiety, Denies depression - Endocrine Endocrine: Denies fatigue, Denies weight change - Hematologic/Lymphatic Comment: none - Allergic/Immunologic: codiene Objective - Constitutional General appearance: Present: cooperative - EENT Eyes: Present: EOMI ENT: Present: hearing grossly normal - Neck Neck: Present: normal ROM - Respiratory Respiratory: bilateral: CTA - Cardiovascular Rhythm: regular Heart sounds: normal: S1, S2 - Integumentary Integumentary: Present: normal turgor - Musculoskeletal Musculoskeletal: Present: gait normal - Psychiatric Psychiatric: Present: A&O x's 3, appropriate affect, intact judgment & insight - Additional findings Additional findings: Breast Exam: BRA: 40D inspection: bilateral grade 3 ptosis; palpation: right breast: Multi-positional exam fibrocystic changes no dominant masses or nodules of concern Right axilla: No adenopathy of concern Left breast: Multi-positional exam fibrocystic changes no dominant masses or nodules of concern, well healed scar from lumpectomy Left axilla: No adenopathy of concern Assessment and Plan Assessment: Impression: Left breast DCIS status post resection 2018 no radiation therapy the patient is on Aromasin; no evidence of recurrence Plan: Repeat bilateral mammogram March 2025 follow up in one year Continue to follow with medical oncology stop aromosin as per medical oncology CC: Dr. Dickerson
== END ==
LOC: WWCWWP 10:03
PROVIDERS: ATTEND Surgery
DX: R92.8 Other abnormal and inconclusive findings on diagnostic imaging of breast (principal); Z85.3 Personal history of malignant neoplasm of breast; Z88.5 Allergy status to narcotic agent

== ENCOUNTER → 2024-07-16 | Outpatient (CLI) | payer MEDICARE, OTHER ==
[2024-07-16 16:34] LABS: BUN/Creat Ratio 27.67 Ratio (12.00-20.00); Blood Urea Nitrogen 16.6 mg/dL (9.0-27.0); Carbon Dioxide 27.9 mmol/L (21.6-31.8); Chloride 103 mmol/L (96-109); Chol/HDL Ratio 4.68 Ratio; Glucose 115 mg/dL (70-110); LDL Cholesterol,Calculated 177.7 mg/dL (0.0-131.0); Potassium 4.2 mmol/L (3.5-5.5); Sodium 140 mmol/L (135-145)
[2024-07-16 16:35] LABS: ALT 32 U/L (8-44); AST 21 U/L (13-35); Albumin/Globulin Ratio 1.67 Ratio (1.60-3.17); Alkaline Phosphatase 73 U/L (41-126); Calcium 9.8 mg/dL (8.7-10.3); Globulin 2.4 g/dL (1.6-3.3); Total Bilirubin 0.5 mg/dL (0.3-1.2); Total Protein 6.4 g/dL (6.2-8.2)
== END | disposition home or self-care (01) ==
LOC: LABWHC1 09:59
PROVIDERS: ATTEND Internal Medicine Interventional Cardiology
DX: I10 Essential (primary) hypertension (principal); E78.2 Mixed hyperlipidemia
CPT/HCPCS: 36415; 80053; 80061